=== PATIENT | male | born 1935 | race Caucasian/White ===

== ENCOUNTER 2017-03-04 11:46 | Inpatient (IN) | payer MEDICARE, OTHER ==
[~2017-03-04] VITALS: Ht 172.7 cm; Wt 119.9 kg
[2017-03-04] MEDS ORDERED: ALLOPURINOL100 MG PO (12:32)
[2017-03-04] MEDS ORDERED: DOCUSATE SODIU100 MG PO (12:32)
[2017-03-04] MEDS ORDERED: ASPIRIN 81MG TA81 MG PO (12:32)
[2017-03-04] MEDS ORDERED: CLOPIDOGREL75 MG PO (12:33)
[2017-03-04] MEDS ORDERED: LASIX 40MG. TAB40 MG PO (12:33)
[2017-03-04] MEDS ORDERED: PANTOPRAZOLE SO40 MG PO (12:34)
[2017-03-04] MEDS ORDERED: GABAPENTIN300 MG PO (12:34)
[2017-03-04] MEDS ORDERED: GLIPIZIDE10 MG PO (12:35)
[2017-03-04] MEDS ORDERED: METOPROLOL TAR100 MG PO (12:36)
[2017-03-04] MEDS ORDERED: SIMVASTATIN40 MG PO (12:36)
[2017-03-04] MEDS ORDERED: TAMSULOSIN HYD0.4 MG PO (12:36)
[2017-03-04] MEDS ORDERED: DELTA D3400 IU PO (12:37)
[2017-03-04 12:40] VITALS: BP 151/68
--- NOTE | 2017-03-04 13:02 | Emergency Room Report ---
History of Present Illness Time Seen by 130Stevie Presenting Problem in Triage Pt arrived:Walked Presenting Problem:PT SENT FROM [facility]- PT REPORTS DIFFICULTY BREATHING X3 DAYS. REPORTS INTERMITTENT PRODUCTIVE COUGH. Onset of symptoms date/time:03/01/17/ or onset unknown for:MEDICAL HX UNKNOWN Treatment Prior to Arrival: [employer] Provided by: Sepsis Risk Assessment: Temp: 98.8 B/P: 151/68 MAP: 95 Pulse: 82 Resp: 22 Recent fever? N Clinical Suspician of Infection? N Mental Status: 1 - Regular (Normal Baseline) Sepsis Risk:Low Sepsis Risk Have you (or family members/close friends) recently traveled outside the [place]? N If Yes, where/when: Have you had exposure to infectious disease within the past month? N TB? Other? Specify: Comment Patient complains of shortness of breath for 2 days. He does not walk, he uses an electric wheelchair, but he says even with minimal exertion going to the bathroom he became very short of breath. He has a cough with white sputum. Rhinorrhea. No fever. No chest pain. He has chronic swelling of his legs, unchanged. He goes to the [facility]. He says that he just moved back up here from [place] 2 weeks ago. He states he has a history of congestive heart failure. He was a smoker, quit 17 years ago. He denies history of chronic obstructive pulmonary disease. ALLERGIES Coded Allergies: No Known Allergies (03/04/17) Home Medications Reported Medications Allopurinol 200 MG PO ONCE ASPIRIN (Aspirin) 81 MG PO DAILY Docusate Sodium 100 MG PO DAILY Furosemide (Lasix 40MG) 40 MG PO DAILY CLOPIDOGREL BISULFATE (Clopidogrel 75MG) 75 MG PO DAILY Gabapentin (Gabapentin 300MG) 300 MG PO BID Pantoprazole Sodium (Pantoprazole 40MG) 40 MG PO ONCE Glipizide 10 MG PO BID Metoprolol Tartrate (Metoprolol 100MG) 100 MG PO BID TAMSULOSIN HCL (Tamsulosin 0.4MG) 0.4 MG PO QHS Simvastatin (Simvastatin 40MG Tab) 40 MG PO DAILY CHOLECALCIFEROL (VITAMIN D3) (Delta D3) 400 UNIT PO DAILY History Medical History General CAD? No Angina: No FL: No Hypertension? No Hyperlipidemia? No CHF? Yes DVT? No PE? No COPD? No Asthma? No GERD? Yes Gastric ulcers? No GI Bleed? No Hernia? No Thyroid Problems? No Hypothyroidism? No CVA? No Seizures? No Diabetes? Yes Insulin Dependent: No Insulin Pump: No Home FSBS? No Renal Insuffiency? Yes End Stage Renal Disease? No UTI? Yes Stones? Yes GB Disease: No Hepatitis? No Arthritis? Yes Cataracts? Yes Glaucoma? No TB? No Anxiety? No Depression? No Cancer? No Immunization Hx DT/Tetanus Unknown Surgical Hx Previous Surgery?Y Tonsils Hernia GOITER LT KIDNEY CATARACTS RT KNEE Family History Family Hx Diabetes Yes CAD No Hypertension Yes Hyperlipidemia No Cancer Yes TB No Social History Smoking Hx Smoker: Former Smoker Tobacco: No Packs/day N/A Alcohol Alcohol: No Review of Systems All Other Systems Reviewed and Negative Constitutional denies fever ENT nose discharge. denies: throat pain. Respiratory cough, shortness of breath Cardiovascular denies chest pain, edema (chronic) Physical Exam Vital Signs Vital Signs Date Time Temp Pulse Resp B/P Pulse O2 O2 Flow FiO2 Ox Delivery Rate 03/04 1548 98.2 93 18 119/77 94 3 03/04 1545 98.2 93 18 119/77 94 3 03/04 1437 94 18 124/67 96 3 03/04 1336 80 18 125/71 96 3 03/04 1240 98.8 82 22 151/68 93 03/04 1156 99.6 68 20 93/40 92 General Appearance normal appearance, WD/WN Eye Exam - bilateral eye normal exam, bilateral eye PERRL, bilateral eye EOMI Ear, Nose, Throat hearing grossly normal, normal ENT inspection Neck normal inspection, non-tender, supple, full range of motion Respiratory Status Yes: trachea midline, chest symmetrical, non tender chest. No: respiratory distress. Lung Sounds bilateral: normal breath sounds, lungs clear. Cardiovascular no peripheral edema, no gallop, no JVD, no murmur, no rub, normal peripheral pulses, irregularly irregular Peripheral Pulses Pulses normal Yes Gastrointestinal normal bowel sounds, normal exam, non tender, soft, no organomegaly Extremities 1+ edema of lower legs and ankles Neurologic alert, normal exam Mental status normal mood/affect Skin intact, normal color, warm/dry Medical Decision Making LABS/Meds/Orders Pt receiving controlled substance in ED? No Results/Orders Laboratory Tests 03/04/17 1533: Antibody Screen NEGATIVE, Miscellaneous Test NEGATIVE 03/04/17 1400: Stool Occult Blood NEGATIVE 03/04/17 1300: TSH 6.24 H, Thyroxine (T4) 7.0 03/04/17 1300: Lactic Acid 1.5 03/04/17 1300: B-Natriuretic Peptide 133 H 03/04/17 1300: Sodium 142, Potassium 4.6, Chloride 107, Carbon Dioxide 33 H, BUN 23 H, Creatinine 1.8 H, Estimated Creat Clear 50, Estimated GFR (MDRD) 36, Glucose 175 H, Calcium 8.5, Total Bilirubin 0.3, AST 10 L, ALT 16, Alkaline Phosphatase 72, Creatine Kinase 42, CK-MB (CK-2) Rel Index 1.2, CK and CKMB Interp 0.5, Troponin I < 0.02, Total Protein 6.7, Albumin 3.1 L, Globulin 3.6 H, Albumin/Globulin Ratio 0.9 L, D-Dimer 1190 *H, WBC 7.8, RBC 3.47 L, Hgb 8.2 L, Hct 28.0 L, MCV 80.7 L, RDW 21.9 H, Plt Count 191, Gran % 83.3 H, Gran # 6.5, Lymphocytes % 12.1, Monocytes % 4.6, Lymphocytes # 0.9, Monocytes # 0.4, PUBS MCHC 29.3 L, MCH 23.6 L Current Medication Orders Sig/Ollie Start time Last Medication Dose Route Stop Time Status Admin Aspirin 81 MG DAILY 03/05 900 AC PO Clopidogrel Bisulfate 75 MG DAILY 03/05 900 AC PO Furosemide 40 MG DAILY 03/05 900 AC PO Enoxaparin Sodium 115 MG Q12 03/04 2100 AC SC Gabapentin 300 MG BID 03/04 2100 AC PO Metoprolol Tartrate 100 MG BID 03/04 2100 AC PO Pravastatin Sodium 40 MG QHS 03/04 2100 AC PO Tamsulosin HCl 0.4 MG QHS 03/04 2100 AC PO Diagnostic Test (Pha) 1 EACH W/MEALS&HS 03/04 1700 AC FS 05/03 1659 Insulin Human [rDNA See Dose W/MEALS&HS 03/04 1700 AC origin] Insts (1) SC Acetaminophen 650 MG Q4HP PRN 03/04 1515 AC PO Allopurinol 200 MG ONCE ONE 03/04 1515 DC PO 03/04 1516 Ceftriaxone Sodium 1 GM DAILY 03/04 1515 AC Sodium Chloride 50 ML IV Influenza Virus 0.5 ML PRN PRN 03/04 1515 AC Vaccine Quadrival IM Nicotine 21 MG DAILYP PRN 03/04 1515 AC TD Pantoprazole Sodium 40 MG ONCE ONE 03/04 1515 DC PO 03/04 1516 Sodium Chloride 10 ML PRN PRN 03/04 1515 AC IV Enoxaparin Sodium 0 .STK-MED ONE 03/04 1449 DC SC Enoxaparin Sodium 115 MG ONCE ONE 03/04 1445 DC 03/04 SC 03/04 1446 1453 Levofloxacin/Dextrose 150 ML ONCE ONE 03/04 1415 DCr 03/04 IV 03/04 1544 1411 Levofloxacin/Dextrose 150 ML .STK-MED ONE 03/04 1408 DC IV Sodium Chloride 10 ML PRN PRN 03/04 1300 AC IV 03/05 1250 Dose Instructions: (1)Insulin Human [rDNA origin]: SEE ADMIN CRITERIA FOR LOW INTENSITY SS Orders Procedure Date/time Status NUC LUNG VENT & PERFUSION 03/05 UNK Active DIET-2000 CALORIE ADA 03/04 D Active D-DIMER 03/04 1439 Complete Decision to admit 03/04 1433 Active THYROID STIMULATING HORMONE 03/04 1406 Complete THYROXINE (T4) 03/04 1406 Complete STOOL OCCULT BLOOD 03/04 1406 Complete BRAIN NATRIURETIC PEPTIDE 03/04 1312 Complete ELECTROCARDIOGRAM REQUEST 03/04 1251 Active IV SALINE LOCK 03/04 1251 Active TECHNICAL SUPPORT ASSOCIATE 03/04 1251 Active CULTURE, BLOOD 03/04 1251 Active LACTIC ACID 03/04 1251 Complete CBC WITH AUTO DIFF 03/04 1251 Complete CARDIAC ENZYMES 03/04 1251 Complete CHEM 12 PROFILE 03/04 1251 Complete ADMIT PATIENT 03/04 UNK Active 12 LEAD EKG-BESSON (INITIAL) 03/04 UNK Active PULSE OXIMETRY REQUEST 03/04 UNK Active OXYGEN REQUEST 03/04 UNK Active ECHO ADULT 03/04 UNK Active VITAL SIGNS 03/04 UNK Active JOB FOREMAN 03/04 UNK Active IV SALINE LOCK 03/04 UNK Active CODE STATUS 03/04 UNK Active PATIENT ACTIVITY ORDER 03/04 UNK Active TYPE AND SCREEN 03/04 UNK Complete PHYSICIANS CONSULT 03/04 UNK Active CM/EKG CM/EKG Comments EKG interpreted by Augustin Goode MD: Rhythm: Atrial fibrillation, controlled response Rate: 84 [place]: normal Ectopy: none Conduction: normal ST Segment Changes: none T Wave Changes: none Q Waves: none No evidence of acute ischemia or injury Low voltage QRS No prior EKGs available for comparison XRAY/CT/US XRAY/CT/US XRAY chest Comment X-ray interpreted by radiologist: RIGHT basilar atelectasis or infiltrate, small RIGHT pleural effusion. Progress - 2:00 PM: Discussed results with patient. He states he has no history of atrial fibrillation to his knowledge. He says that he was given a transfusion 6 months ago because of blood in his stool. He says he currently does not have blood in his stool. 2:30 PM: The [facility] does not have any beds. The patient will be admitted here. I have discussed the case with Dr. Ron who agrees to admit the patient to the hospital. We discussed the patient's clinical information, including history, exam, laboratory and radiology results and ED course. Per hospital procedure, I will write temporary bridge inpatient orders on the patient. Specific orders requested by the admitting physician: D dimer, started on Lovenox. Type and hold for 2 units of blood. Change from Lovenox to Rocephin. Cardiology consult. 4:20 PM: Seen by Abner for Dr. Vivas in ED. Departure Departure Disposition Still a Patient Clinical Impression Primary Impression: Community acquired pneumonia Qualifiers: Laterality: right Lung location: lower lobe of lung Qualified Code: J18.1 - Lobar pneumonia, unspecified organism Secondary Impressions: Anemia Qualifiers: Anemia type: unspecified type Qualified Code: D64.9 - Anemia, unspecified Atrial fibrillation, new onset Condition STABLE ED Critical Care Critical Care No at [id number]
[2017-03-04 13:22] LABS: HEMOGLOBIN 8.2 g/dL (14.1-18.0)
[2017-03-04 13:23] LABS: LYMPH % 12.1 % (10-50)
[2017-03-04 13:24] LABS: LYMPH # 0.9 K/mm3 (0.7-4.5)
[2017-03-04 13:44] LABS: BUN 23 mg/dL (7-18)
[2017-03-04 13:45] LABS: GFR (ESTIMATED) 36 ML/MIN (>60)
--- NOTE | 2017-03-04 13:50 | RADIOLOGY REPORT PS360 ---
CHEST-PORTABLE HISTORY: SOA, COUGH ORDERING PHYSICIAN: Augustin Goode MD PATIENT AGE: 82 years COMPARISON: None available FINDINGS: There is cardiomegaly without failure. Patchy density is present in the right lung base consistent with atelectasis or infiltrate. There is a small right pleural effusion. Patient's chin obscures the lung apices. Left heart obscures the left lung base. Upper lungs are clear. There is mild prominence of the hilum on the left. This may be vascular. There are no previous available for comparison. IMPRESSION: 1. Cardiomegaly. 2. Right basilar atelectasis or infiltrate with small right effusion
[2017-03-04 14:35] LABS: STOOL OCCULT BLOOD NEGATIVE (NEG)
--- NOTE | 2017-03-04 16:33 | CONSULT NOTE ---
Standard Demographics Patient Demo Date of Consultation: 03/04/17 Referring Provider: Gavin Ron MD Reason for Consultation: A.fib with CVR, CAD PRIMARY DIAGNOSIS: CAP,ANEMIA,NEW ONSET A FIB Problem list Problem list: 1. Coronary artery disease A. History of coronary artery stenting approximately 2014 or 2015, in [place]. Patient unsure of the hospital. 2. History of Coumadin therapy for possible atrial fibrillation A. Discontinued early 2016 at which time he was hospitalized for anemia with subsequent blood transfusion 3. 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 Diabetes mellitus, treated for a couple of years 5. Gout 6. History of congestive heart failure 7. History of tobacco use discontinued 1998. Previously smoked one pack per day for 52 years History of present illness: History of present illness: 82-year-old white male with history as noted above presented to the emergency department for increasing shortness of breath and dyspnea over the last several days. Patient denies chest pain, palpitations, chest tightness or pressure. Workup in the emergency room revealed atrial fibrillation with controlled ventricular response. Initial d-dimer is elevated but due to creatinine patient cannot undergo CT scan of the lungs for PE protocol. A VQ scan has been ordered. In the meantime patient has been started on Lovenox therapy. He is noted to be anemic with a recent history of blood transfusion. Etiology apparently unknown per patient and granddaughter. Cardiology consulted for evaluation. Electrocardiogram shows atrial fibrillation with controlled ventricular response with poor R wave progression anteriorly. Past Medical History: General: Hypertension No CVA No Seizures No TB No COPD No Asthma No Diabetes Yes Insulin Dependent No Insulin Pump No Angina No VT No Hyperlipidemia No Cancer No Ulcers No GB Disease No Past Surgical HX: Previous Surgery?Y Tonsils Hernia GOITER LT KIDNEY CATARACTS RT KNEE Allergies Coded Allergies: No Known Allergies (03/04/17) Home medications: Reported Medications Allopurinol 200 MG PO ONCE ASPIRIN (Aspirin) 81 MG PO DAILY Docusate Sodium 100 MG PO DAILY Furosemide (Lasix 40MG) 40 MG PO DAILY CLOPIDOGREL BISULFATE (Clopidogrel 75MG) 75 MG PO DAILY Gabapentin (Gabapentin 300MG) 300 MG PO BID Pantoprazole Sodium (Pantoprazole 40MG) 40 MG PO ONCE Glipizide 10 MG PO BID Metoprolol Tartrate (Metoprolol 100MG) 100 MG PO BID TAMSULOSIN HCL (Tamsulosin 0.4MG) 0.4 MG PO QHS Simvastatin (Simvastatin 40MG Tab) 40 MG PO DAILY CHOLECALCIFEROL (VITAMIN D3) (Delta D3) 400 UNIT PO DAILY Current Medications: Current Medications Aspirin 81 MG DAILY PO Clopidogrel Bisulfate 75 MG DAILY PO Furosemide 40 MG DAILY PO Enoxaparin Sodium 115 MG Q12 SC Gabapentin 300 MG BID PO Metoprolol Tartrate 100 MG BID PO Pravastatin Sodium 40 MG QHS PO Tamsulosin HCl 0.4 MG QHS PO Diagnostic Test (Pha) 1 EACH W/MEALS&HS FS Insulin Human [rDNA origin] SEE ADMIN CRITERIA FOR LOW INTENSITY SS W/MEALS&HS SC Acetaminophen 650 MG Q4HP PRN PO Allopurinol 200 MG ONCE ONE PO (DC) Ceftriaxone Sodium 1 GM DAILY IV Sodium Chloride 50 ML Influenza Virus Vaccine Quadrival 0.5 ML PRN PRN IM Nicotine 21 MG DAILYP PRN TD Pantoprazole Sodium 40 MG ONCE ONE PO (DC) Sodium Chloride 10 ML PRN PRN IV Enoxaparin Sodium 0 .STK-MED ONE SC (DC) Enoxaparin Sodium 115 MG ONCE ONE SC (DC) Levofloxacin/Dextrose 150 ML ONCE ONE IV (DCr) Levofloxacin/Dextrose 150 ML .STK-MED ONE IV (DC) Sodium Chloride 10 ML PRN PRN IV Immunization HX DT/Tetanus Unknown Family history Family HX Family Hx Insignificant No Diabetes Yes CAD No Hypertension Yes Hyperlipidemia No Cancer Yes TB No Social Hx: Smoking HX Tobacco No Packs/day N/A Alcohol Alcohol: No Hx of Drug Use Drug Use? No Patien't marital status is Patient's support system is fair Review of systems: Constitutional weakness. Respiratory SOB with excertion. Cardiovascular palpitations Gastrointestinal/Abdominal No no symptoms reported Genitourinary No: no symptoms reported. Musculoskeletal joint pain. Neurological No: no symptoms reported. Exam: Admission Vital Signs: 1ST Vital Signs Result Date Time Pulse Ox 92 03/04 1156 B/P 93/40 03/04 1156 Temp 99.6 03/04 1156 Pulse 68 03/04 1156 Resp 20 03/04 1156 O2 Flow Rate 3 03/04 1336 Last Vital Signs: Vital Signs Result Date Time Pulse Ox 94 03/04 1548 B/P 119/77 03/04 1548 O2 Flow Rate 3 03/04 1548 Temp 98.2 03/04 1548 Pulse 93 03/04 1548 Resp 18 03/04 1548 Exam General appearance: alert, awake, no acute distress Neck: no carotid bruit, no JVD Cardiovascular: irregularly irregular with controlled ventricular response. Unable to appreciate any murmur gallop or rub at this time. Respiratory: poor effort but decreased breath sounds noted generally. ABD: soft, no tenderness, obese Extremities: moves all, arthritic changes noted of the hands. Decreased dorsalis pedis and posterior tibial pulses with 1+ edema noted bilaterally. Neuro: alert, intact, oriented Laboratory data: Laboratory Tests 03/04/17 1400: Stool Occult Blood NEGATIVE 03/04/17 1300: TSH 6.24 H, Thyroxine (T4) 7.0 03/04/17 1300: Lactic Acid 1.5 03/04/17 1300: B-Natriuretic Peptide 133 H 03/04/17 1300: Sodium 142, Potassium 4.6, Chloride 107, Carbon Dioxide 33 H, BUN 23 H, Creatinine 1.8 H, Estimated Creat Clear 50, Estimated GFR (MDRD) 36, Glucose 175 H, Calcium 8.5, Total Bilirubin 0.3, AST 10 L, ALT 16, Alkaline Phosphatase 72, Creatine Kinase 42, CK-MB (CK-2) Rel Index 1.2, CK and CKMB Interp 0.5, Troponin I < 0.02, Total Protein 6.7, Albumin 3.1 L, Globulin 3.6 H, Albumin/Globulin Ratio 0.9 L, D-Dimer 1190 *H, WBC 7.8, RBC 3.47 L, Hgb 8.2 L, Hct 28.0 L, MCV 80.7 L, RDW 21.9 H, Plt Count 191, Gran % 83.3 H, Gran # 6.5, Lymphocytes % 12.1, Monocytes % 4.6, Lymphocytes # 0.9, Monocytes # 0.4, PUBS MCHC 29.3 L, MCH 23.6 L Microbiology Date/Time Procedure - Status Source Growth 03/04 1300 Anaerobic Blood Culture - RECD BLOOD 03/04 1300 Aerobic Blood Culture - RECD BLOOD 03/04 1300 Anaerobic Blood Culture - RECD BLOOD 03/04 1300 Aerobic Blood Culture - RECD BLOOD Plan: Assessment: 1. Atrial fibrillation with controlled ventricular response. Onset unknown. Lovenox has been started. Continue metoprolol for rate control. We'll obtain an echocardiogram to evaluate LEFT ventricular size, LEFT atrial size and LEFT ventricular ejection fraction. Elevated d-dimer noted with plans for VQ scan. Patient has an elevated CHADS-VASc score and the issue of long-term anticoagulation versus referral for LEFT atrial appendage ligation will need to be addressed prior to discharge. 2. Coronary artery disease with history of coronary artery stenting in the past. Initial troponin normal. Continue aspirin and Plavix. 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 Chronic kidney disease stage III 5. Diabetes mellitus 6. Hypertension 7. Anemia with history of recent blood transfusion 8. Mildly elevated BNP Recommendations: See above. at 1633
[2017-03-04 16:57] LABS: ABO BLOOD TYPE B; RH BLOOD TYPE NEGATIVE
[2017-03-04 17:01] VITALS: BP 151/69
[2017-03-04 17:27] VITALS: BP 151/69
--- NOTE | 2017-03-04 18:19 | ACUTE CARE PROGRESS NOTE (QUA) ---
Progress Notes Subjective Date 03/04/17 Time 1800 Note 82 y.o WM has moved back here from [place], Presented in ER with SOA. He is a [facility] patient. CXR suggests atelectasis and pleural effusion on the left. He is in A-fib, onset unknown, but he has not been aware that he has heart irregularity. He is aferile and WBC is WNL. D-dimer is elevated and VQ scan is ordered. He takes Plavix and aspirin. Plavix will be D/C'd and Rx Lovenox. Received Levaquin in ER but will be continued on Ceftriaxone. See H&P and Cardiology consult. Objective Findings Laboratory Tests 03/04/17 1739: POC Glucose 118 H 03/04/17 1533: Antibody Screen NEGATIVE, Miscellaneous Test NEGATIVE 03/04/17 1400: Stool Occult Blood NEGATIVE 03/04/17 1300: TSH 6.24 H, Thyroxine (T4) 7.0 03/04/17 1300: Lactic Acid 1.5 03/04/17 1300: B-Natriuretic Peptide 133 H 03/04/17 1300: Sodium 142, Potassium 4.6, Chloride 107, Carbon Dioxide 33 H, BUN 23 H, Creatinine 1.8 H, Estimated Creat Clear 50, Estimated GFR (MDRD) 36, Glucose 175 H, Calcium 8.5, Total Bilirubin 0.3, AST 10 L, ALT 16, Alkaline Phosphatase 72, Creatine Kinase 42, CK-MB (CK-2) Rel Index 1.2, CK and CKMB Interp 0.5, Troponin I < 0.02, Total Protein 6.7, Albumin 3.1 L, Globulin 3.6 H, Albumin/Globulin Ratio 0.9 L, D-Dimer 1190 *H, WBC 7.8, RBC 3.47 L, Hgb 8.2 L, Hct 28.0 L, MCV 80.7 L, RDW 21.9 H, Plt Count 191, Gran % 83.3 H, Gran # 6.5, Lymphocytes % 12.1, Monocytes % 4.6, Lymphocytes # 0.9, Monocytes # 0.4, PUBS MCHC 29.3 L, MCH 23.6 L Microbiology 03/04 1300 BLOOD: Anaerobic Blood Culture - RECD 03/04 1300 BLOOD: Aerobic Blood Culture - RECD 03/04 1300 BLOOD: Anaerobic Blood Culture - RECD 03/04 1300 BLOOD: Aerobic Blood Culture - RECD Last VS-Temp:98.1 B/P:151/69 Pulse:87 Resp:22 SaO2:98 OXYGEN Last weight lbs:258 oz:7 K.227 Method:Bed Scales Exam General appearance: alert (talkative), no acute distress Eyes: anicteric, conjunctiva clear, PERRLA ENT: mucous membranes moist Cardiovascular: irregularly irregular Respiratory: basilar rales (faint), diminished breath sounds ABD: soft, obese Extremities: edema (trace) Skin: dry, pale Neuro: no deficit, oriented, speech clear Reviewed: medications, vital signs, lab results, radiology report, consult note Assessment/Plan Problem List 1. Anemia 2. Atrial fibrillation 3. Hypothyroidism 4. Pleural effusion 5. Type 2 diabetes mellitus 6. Debilitated 7. COPD (chronic obstructive pulmonary disease) 8. Elevated d-dimer 9. Hypotension Patient condition Stable Plan: see orders. This inpt stay is expected to cross 2 MNs from start of care Yes at 1812
--- NOTE | 2017-03-04 18:26 | HISTORY AND PHYSICAL REPORT ---
History and Physical ([facility]) Date of admission: 03/04/17 Chief complaint: SOB History: History of Present Illness: Mr. 82-year-old white male with history as noted above presented to the emergency department for increasing shortness of breath and dyspnea over the last several days. Patient denies chest pain, palpitations, chest tightness or pressure. BP at home at this time was 90/30"s. He has a periodic cough and denies fever. Workup in the emergency room revealed atrial fibrillation with controlled ventricular response. Initial d-dimer is elevated but due to creatinine patient cannot undergo CT scan of the lungs for PE protocol. A VQ scan has been ordered. In the meantime patient has been started on Lovenox therapy. He is noted to be anemic with a recent history of blood transfusion. Etiology apparently unknown per patient and granddaughter. Cardiology consulted for evaluation. Electrocardiogram shows atrial fibrillation with controlled ventricular response with poor R wave progression anteriorly. Past Medical History: Medical History: CAD? Yes Angina: No DE: No Hypertension? No Hyperlipidemia? No CHF? Yes DVT? No PE? No COPD? Yes Asthma? No Anemia? Yes GERD? Yes Gastric ulcers? No GI Bleed? Yes Hernia? No Thyroid Problems? Yes Hypothyroidism? Yes CVA? No Seizures? No Diabetes? Yes Insulin Dependent: No Insulin Pump: No Home FSBS? No Renal Insuffiency? Yes UTI? Yes Stones? Yes BPH? Yes GB Disease: No Hepatitis? No Arthritis? Yes Cataracts? Yes Glaucoma? No TB? No Anxiety? No Depression? No Cancer? No Additional hx: Gout 05/1984 Acute diverticulitis -colonoscopy 1986 SVT Renal stones Ankle Fracture Atrophy of Left kidney Ct 1998 Surgical history: Previous Surgery?Y Tonsils Hernia GOITER LT KIDNEY nephrectomy CATARACTS RT KNEE Medications: Reported Medications Allopurinol 200 MG PO ONCE ASPIRIN (Aspirin) 81 MG PO DAILY Docusate Sodium 100 MG PO DAILY Furosemide (Lasix 40MG) 40 MG PO DAILY CLOPIDOGREL BISULFATE (Clopidogrel 75MG) 75 MG PO DAILY Gabapentin (Gabapentin 300MG) 300 MG PO BID Pantoprazole Sodium (Pantoprazole 40MG) 40 MG PO ONCE Glipizide 10 MG PO BID Metoprolol Tartrate (Metoprolol 100MG) 100 MG PO BID TAMSULOSIN HCL (Tamsulosin 0.4MG) 0.4 MG PO QHS Simvastatin (Simvastatin 40MG Tab) 40 MG PO DAILY CHOLECALCIFEROL (VITAMIN D3) (Delta D3) 400 UNIT PO DAILY Allergies: Coded Allergies: No Known Allergies (03/04/17) Family History: Family history: Postive for: CAD, DM, cancer. Social History: Smoking Hx Tobacco: No Smoker: Former Smoker Type: N/A Packs/day: N/A Are you exposed to second hand No Alcohol: Alcohol: No Hx of Drug Use: Drug Use? No Review of Systems: ENT No: ear ache, sore throat. Cardiovascular Positive for: edema, palpitations. No: chest pain. Respiratory Positive for: shortness of air, non-productive. No: pneumonia. GI Positive for: GERD. No: abdominal pain, constipation, hematemeis, hematochezia, melena, nausea, vomitting. (male) No: hematuria. Neurological Positive for: headache. No: confusion, dizziness, seizure, syncope. Musculoskeletal Positive for: extremity pain (legs). Physical Exam: Vital signs: 1ST Vital Signs Result Date Time Pulse Ox 92 03/04 1156 B/P 93/40 03/04 1156 Temp 99.6 03/04 1156 Pulse 68 03/04 1156 Resp 20 03/04 1156 O2 Flow Rate 3 03/04 1336 O2 Delivery OXYGEN 03/04 1701 Exam: General appearance: alert, no acute distress, conversant Eyes: anicteric ENT: mucous membranes moist Neck: no carotid bruit, full range of motion, lymphadenopathy (absent), thyroid (normal) Cardiovascular: irregularly irregular Respiratory: diminished breath sounds (posterior) ABD: soft, no tenderness, bowel sounds present, obese Extremities: edema (bilateral lower) Neuro: alert, oriented, speech clear Lab data: Labs: Laboratory Tests 03/04/17 1739: POC Glucose 118 H 03/04/17 1533: Antibody Screen NEGATIVE, Miscellaneous Test NEGATIVE 03/04/17 1400: Stool Occult Blood NEGATIVE 03/04/17 1300: TSH 6.24 H, Thyroxine (T4) 7.0 03/04/17 1300: Lactic Acid 1.5 03/04/17 1300: B-Natriuretic Peptide 133 H 03/04/17 1300: Sodium 142, Potassium 4.6, Chloride 107, Carbon Dioxide 33 H, BUN 23 H, Creatinine 1.8 H, Estimated Creat Clear 50, Estimated GFR (MDRD) 36, Glucose 175 H, Calcium 8.5, Total Bilirubin 0.3, AST 10 L, ALT 16, Alkaline Phosphatase 72, Creatine Kinase 42, CK-MB (CK-2) Rel Index 1.2, CK and CKMB Interp 0.5, Troponin I < 0.02, Total Protein 6.7, Albumin 3.1 L, Globulin 3.6 H, Albumin/Globulin Ratio 0.9 L, D-Dimer 1190 *H, WBC 7.8, RBC 3.47 L, Hgb 8.2 L, Hct 28.0 L, MCV 80.7 L, RDW 21.9 H, Plt Count 191, Gran % 83.3 H, Gran # 6.5, Lymphocytes % 12.1, Monocytes % 4.6, Lymphocytes # 0.9, Monocytes # 0.4, PUBS MCHC 29.3 L, MCH 23.6 L Microbiology 03/04 1300 BLOOD: Anaerobic Blood Culture - RECD 03/04 1300 BLOOD: Aerobic Blood Culture - RECD 03/04 1300 BLOOD: Anaerobic Blood Culture - RECD 03/04 1300 BLOOD: Aerobic Blood Culture - RECD Radiology results: Results: 03/03/17 CXR IMPRESSION: 1. Cardiomegaly. 2. Right basilar atelectasis or infiltrate with small right effusion Diagnosis(es): 1. Community acquired pneumonia 2. Atrial fibrillation, new onset 3. Anemia 4. Atrial fibrillation 5. Hypothyroidism 6. Pleural effusion 7. Type 2 diabetes mellitus 8. Debilitated 9. COPD (chronic obstructive pulmonary disease) 10. Elevated d-dimer 11. Hypotension 12. CAD (coronary artery disease) 13. Gout Plan: Cardiology has seen patient and will follow; ECHO is pending; Will have V-Q scan in AM; Telementry;monitor H&H; PRBC have been set up; will add xopenex and is on Rocephin; will add low dose of synthroid at 2947
[2017-03-04 19:31] VITALS: BP 105/60
[2017-03-04 19:55] VITALS: BP 105/60
[2017-03-05] VITALS (9 sets, daily range): BP systolic 96–137; BP diastolic 55–74
--- NOTE | 2017-03-05 07:29 | PHARMACY CLINIC NOTE ---
Patient Demographics Patient Demographics Admission date: 03/04/17 Date: 03/05/17 Time: 727 Allergies Coded Allergies: No Known Allergies (03/04/17) HEIGHT- FT: 5 IN: 8.00 K.227 VTE General Information Labs: Laboratory Tests 03/04 1300 Hematology Hgb (14.1 - 18.0 g/dL) 8.2 L Hct (42.0 - 52.0 %) 28.0 L Plt Count (142 - 424 K/mm3) 191 Disclaimer The following section includes nursing documentation that has been pulled in for pharmacy review. Patient's VTE score: 4 Patient's VTE Risk: LOW RISK Clinical trial participant? No VTE prophylaxis F [id number] VTE prophylaxis ordered? Yes Type of prophylaxis/treatment: Lovenox at 0729
--- NOTE | 2017-03-05 08:28 | ACUTE CARE PROGRESS NOTE (QUA) ---
Progress Notes Subjective Date 03/05/17 Time 08 Note 82 yo WM in bed in NAD. No chest pains or palpitations overnight. Telemetry shows A.fib with CVR Objective Findings Last VS-Temp:97.8 B/P:104/61 Pulse:84 Resp:20 SaO2:98 OXYGEN Last weight lbs:258 oz:7 K.227 Method:Bed Scales Exam General appearance: alert, awake, no acute distress Cardiovascular: irregularly irregular Respiratory: clear to auscultation Extremities: mild edema of LE's Neuro: alert, intact, oriented Reviewed: medications, vital signs, lab results Assessment/Plan Problem List 1. Community acquired pneumonia Qualifiers: Laterality: right Lung location: lower lobe of lung Qualified Code: J18.1 - Lobar pneumonia, unspecified organism 2. Atrial fibrillation, new onset 3. Anemia Qualifiers: Anemia type: unspecified type Qualified Code: D64.9 - Anemia, unspecified 4. Hypothyroidism 5. Pleural effusion 6. Type 2 diabetes mellitus 7. Debilitated 8. COPD (chronic obstructive pulmonary disease) 9. Elevated d-dimer 10. Hypotension 11. CAD (coronary artery disease) 12. Gout Patient condition Stable Plan: With history of CAD and coronary stenting, he should have lexiscan myoview. Currently asymptomatic with normal troponin but with MCBRIDE and new onset a. fib, would recommend evaluation here in hospital. However, V/Q scan has been ordered and needs to be done first. Will postpone CAD workup for now unless clinical status changes. Continue lovenox for A.fib. check stool for occult blood. Consider transfusion to get Hgb>10 due to CAD. Echo pending. This inpt stay is expected to cross 2 MNs from start of care Yes at 0902
--- NOTE | 2017-03-05 08:46 | ACUTE CARE PROGRESS NOTE (QUA) ---
Progress Notes Subjective Date 03/05/17 Time 0725 Note Pt arouses to voice, converses easily, states he rested well overnight other than a dream in which he removed his tele leads and O2 tubing which it turned out he actually did. He denies any SOB or CP, notes occasional prod cough. He has not yet had breakfast, denies any nausea, is voiding normally. Objective Findings Laboratory Tests 03/05/17 0603: POC Glucose 142 H 03/04/17 1957: POC Glucose 141 H 03/04/17 1739: POC Glucose 118 H 03/04/17 1533: Antibody Screen NEGATIVE, Miscellaneous Test NEGATIVE 03/04/17 1400: Stool Occult Blood NEGATIVE 03/04/17 1300: TSH 6.24 H, Thyroxine (T4) 7.0 03/04/17 1300: Lactic Acid 1.5 03/04/17 1300: B-Natriuretic Peptide 133 H 03/04/17 1300: Sodium 142, Potassium 4.6, Chloride 107, Carbon Dioxide 33 H, BUN 23 H, Creatinine 1.8 H, Estimated Creat Clear 50, Estimated GFR (MDRD) 36, Glucose 175 H, Calcium 8.5, Total Bilirubin 0.3, AST 10 L, ALT 16, Alkaline Phosphatase 72, Creatine Kinase 42, CK-MB (CK-2) Rel Index 1.2, CK and CKMB Interp 0.5, Troponin I < 0.02, Total Protein 6.7, Albumin 3.1 L, Globulin 3.6 H, Albumin/Globulin Ratio 0.9 L, D-Dimer 1190 *H, WBC 7.8, RBC 3.47 L, Hgb 8.2 L, Hct 28.0 L, MCV 80.7 L, RDW 21.9 H, Plt Count 191, Gran % 83.3 H, Gran # 6.5, Lymphocytes % 12.1, Monocytes % 4.6, Lymphocytes # 0.9, Monocytes # 0.4, PUBS MCHC 29.3 L, MCH 23.6 L Microbiology 03/04 1300 BLOOD: Anaerobic Blood Culture - RECD 03/04 1300 BLOOD: Aerobic Blood Culture - RECD 03/04 1300 BLOOD: Anaerobic Blood Culture - RECD 03/04 1300 BLOOD: Aerobic Blood Culture - RECD Vital Signs Date Time Temp Pulse Resp B/P Pulse O2 O2 Flow FiO2 Ox Delivery Rate 03/05 0837 98.2 99 22 105/68 96 2 03/05 0830 98.2 99 22 105/68 96 OXYGEN 03/05 0637 2 03/05 0607 2 03/05 0538 2 03/05 0538 98 OXYGEN 2 03/05 0457 3 03/05 0344 3 03/05 0344 97.8 84 20 104/61 98 OXYGEN 3 03/05 0302 3 03/05 0213 3 03/05 0100 3 03/05 0005 87 ROOM AIR 03/05 0003 3 03/05 0003 97.6 77 20 125/59 99 OXYGEN 3 03/04 2300 3 03/04 2203 3 03/04 2100 3 03/04 1955 97.8 101 22 105/60 99 3 03/04 1931 3 03/04 1931 97.8 101 22 105/60 99 OXYGEN 3 03/04 1900 3 03/04 1818 3 03/04 1727 87 03/04 1727 98.1 87 22 151/69 03/04 1727 98 OXYGEN 03/04 1701 98.1 87 22 151/69 98 OXYGEN 03/04 1700 3 03/04 1615 3 03/04 1615 3 03/04 1548 98.2 93 18 119/77 94 3 03/04 1545 98.2 93 18 119/77 94 3 03/04 1437 94 18 124/67 96 3 03/04 1336 80 18 125/71 96 3 03/04 1240 98.8 82 22 151/68 93 03/04 1156 99.6 68 20 93/40 92 Last VS-Temp:98.2 B/P: 105/68 Pulse:99 Resp:22 SaO2:96 OXYGEN Last weight lbs: 258 oz: 7 K.227 Method: Bed Scales Exam General appearance: alert, awake, no acute distress Cardiovascular: irregular Respiratory: diminished throughout ABD: no rebound, soft, no tenderness, no guarding, no organomegaly, no palpable mass, bowel sounds present, obese Reviewed: medications, vital signs, lab results, radiology report, consult note, nursing notes Assessment/Plan Problem List 1. Community acquired pneumonia 2. Atrial fibrillation, new onset 3. Anemia 4. Hypothyroidism 5. Pleural effusion 6. Type 2 diabetes mellitus 7. Debilitated 8. COPD (chronic obstructive pulmonary disease) 9. Elevated d-dimer 10. Hypotension 11. CAD (coronary artery disease) 12. Gout Patient condition Guarded Plan: Cardiology note seen and appreciated. Further per Dr. Ron. This inpt stay is expected to cross 2 MNs from start of care Yes at 0845
--- NOTE | 2017-03-05 15:10 | RADIOLOGY REPORT PS360 ---
CHEST(2 VIEWS-NOT PORTABLE) HISTORY: Shortness of breath SOB ORDERING PHYSICIAN: Reva Ron MD PATIENT AGE: 82 years COMPARISON: 03/04/2017 FINDINGS: There is cardiomegaly with mild pulmonary venous congestion. Small right effusion with right basilar atelectasis noted. No acute bony anomalies. There is mild biapical pleural thickening. IMPRESSION: 1. Cardiomegaly. 2. Small right effusion with right basilar atelectasis not significantly changed
--- NOTE | 2017-03-05 15:10 | RADIOLOGY REPORT PS360 ---
NUC LUNG VENT PERFUSION HISTORY: Shortness of breath, elevated d-dimer sob, elev d-dimer ORDERING PHYSICIAN: Reva Ron MD PATIENT AGE: 82 years DOSE: 35.4 mCi technetium DTPA inhaled 7.94 mCi technetium MAA IV COMPARISON: Chest x-ray of the same day FINDINGS: Study is somewhat limited as patient could not be positioned for all of the images. The lateral perfusion images were not able to be performed. The remaining perfusion images however were unremarkable showing no segmental defects. Ventilation images are somewhat limited.. IMPRESSION: Low probability for pulmonary embolus
[2017-03-05 19:57] LABS: HEMOGLOBIN 7.8 g/dL (14.1-18.0); LYMPH # 1.2 K/mm3 (0.7-4.5); LYMPH % 14.7 % (10-50)
[2017-03-06] VITALS (19 sets, daily range): BP systolic 99–152; BP diastolic 51–81
[2017-03-06 06:27] LABS: LYMPH % 13.8 % (10-50)
[2017-03-06 06:37] LABS: HEMOGLOBIN 7.5 g/dL (14.1-18.0)
--- NOTE | 2017-03-06 08:11 | RADIOLOGY REPORT PS360 ---
PROCEDURE: 2-D M-mode and color Doppler study INDICATIONS FOR THE TEST: Chest pain COPD Heart Murmur Tobacco Smokingex Palpitations+ Fatigue Syncope Edema Hypertension+Diabetes Mellitus+ Rheumatic Fever SOB MCBRIDE+Obesity+Hyperlipidemia+ Family History HD Additional History CAD, 1 stent, HTN, AFIB, Quit smoking 17 years ago PATIENT INFORMATION HEIGHT: 69 WEIGHT: 258 GENDER: Male B/P: 151/69 2-D/M-MODE INTERPRETATION: 2-D MEASUREMENTS OBSERVED VALUES IN CMS Right Ventricular Dimension (RVDd) 2.2 Interventricular Septum (Thickness)(IVsd) 1.0 Left Ventricular Internal Dimensions(LVIDd) 4.7 Left Ventricular Posterior Wall (Thickness)(LVPWd) 1.0 Aortic Root 4.0 Aortic Cusp Separation 2.5 Left Atrial Dimensions (LAD) 2.7 2D 1. Left atrium is qualitatively mildly enlarged, left ventricle is normal size, there is no concentric left ventricular hypertrophy, visually estimated ejection fraction approximately 50% with no obvious regional wall motion abnormality, endocardial surfaces are poorly visualized. 2. The right atrium and right ventricle are moderately enlarged, contractility of the right ventricle is mildly reduced. 3. The aortic valve is minimally thickened and fibrosed. 4. The mitral valve has mild mitral calcification, there is no mitral stenosis. 5. The tricuspid valve leaflets are minimally thickened. 6. The pulmonic valve is poorly visualized. 7. No significant pericardial effusion noted. DOPPLER INTERROGATION: Doppler interrogation of the aortic, mitral and tricuspid valvular presence of mild mitral and tricuspid regurgitation, calculated right ventricular systolic pressure is 42 mmHg consistent with moderate pulmonary hypertension. CONCLUSION: 1. Biatrial enlargement, normal left ventricular size, visually estimated ejection fraction of 50% with no obvious regional wall motion abnormality, endocardial surfaces are somewhat poorly visualized. 2. Moderately enlarged right ventricle with mild reduced contractility. 3. Mild mitral and tricuspid regurgitation, calculated right ventricular systolic pressure is 42 mmHg consistent with moderate pulmonary hypertension. 4. No significant pericardial effusion noted.
--- NOTE | 2017-03-06 08:41 | ACUTE CARE PROGRESS NOTE (QUA) ---
See Addendum Progress Notes Subjective Date 03/06/17 Time 0730 Note Pt sitting up at bedside eating breakfast, very conversant, reports he is feeling better. Pt denies CP or SOB, has no complaints. He has been voiding without difficulty, +BM. Objective Findings Laboratory Tests 03/06/17 0605: POC Glucose 170 H 03/06/17 0600: Sodium 141, Potassium 5.1, Chloride 106, Carbon Dioxide 34 H, BUN 27 H, Creatinine 2.0 H, Estimated Creat Clear 46 L, Estimated GFR (MDRD) 32, Glucose 165 H, Calcium 8.2 L, WBC 7.1, RBC 3.14 L, Hgb 7.5 *L, Hct 25.5 L, MCV 81.1 L, RDW 22.3 H, Plt Count 165, Gran % 80.5 H, Gran # 5.7, Lymphocytes % 13.8, Monocytes % 5.7, Lymphocytes # 1.0, Monocytes # 0.4, PUBS MCHC 29.4 L, MCH 23.9 L 03/05/174: POC Glucose 183 H 03/05/17 1933: WBC 8.5, RBC 3.29 L, Hgb 7.8 *L, Hct 26.9 L, MCV 81.0 L, RDW 21.7 H, Plt Count 175, Gran % 79.1, Gran # 6.7, Lymphocytes % 14.7, Monocytes % 6.2, Lymphocytes # 1.2, Monocytes # 0.5, PUBS MCHC 29.0 L, MCH 23.7 L 03/05/17 1640: POC Glucose 151 H 03/05/17 1148: POC Glucose 204 H Vital Signs Date Time Temp Pulse Resp B/P Pulse O2 O2 Flow FiO2 Ox Delivery Rate 03/06 0656 2 03/06 0603 2 03/06 0551 2 03/06 0551 95 OXYGEN 2 03/06 0507 2 03/06 0402 2 03/06 040 97.6 69 20 119/63 96 OXYGEN 2 03/06 0248 2 03/06 0210 2 03/06 0056 2 03/05 2349 2 03/05 2349 98.6 73 20 110/55 98 OXYGEN 2 03/05 2311 2 03/05 2213 2 03/05 2100 2 03/05 2010 97.7 66 20 137/74 97 2 03/05 1941 2 03/05 194 97.7 66 20 137/74 97 OXYGEN 2 03/05 1848 2 03/05 1848 88 ROOM AIR 03/05 1846 2 03/05 1646 2 03/05 1630 97.9 72 18 115/67 98 OXYGEN 03/05 1451 2 03/05 1300 2 03/05 1130 98.7 70 18 96/61 98 OXYGEN 03/05 1111 2 03/05 0900 2 03/05 0837 98.2 99 22 105/68 96 2 03/05 0830 98.2 99 22 105/68 96 OXYGEN Last VS-Temp:97.6 B/P: 119/63 Pulse:69 Resp:20 SaO2:95 OXYGEN Last weight lbs: 258 oz: 7 K.227 Method: Bed Scales 03/04/17 ECHO: CONCLUSION: 1. Biatrial enlargement, normal left ventricular size, visually estimated ejection fraction of 50% with no obvious regional wall motion abnormality, endocardial surfaces are somewhat poorly visualized. 2. Moderately enlarged right ventricle with mild reduced contractility. 3. Mild mitral and tricuspid regurgitation, calculated right ventricular systolic pressure is 42 mmHg consistent with moderate pulmonary hypertension. 4. No significant pericardial effusion noted. 03/04/17 Stool Occult Blood: Negative 03/05/17 Nuclear Lung Ventilation Perfusion Scan: IMPRESSION: Low probability for pulmonary embolus 03/05/17 CXR: IMPRESSION: 1. Cardiomegaly. 2. Small right effusion with right basilar atelectasis not significantly changed. Exam General appearance: alert, awake, no acute distress Cardiovascular: irregular Respiratory: diminished throughout ABD: no rebound, soft, no tenderness, no guarding, no organomegaly, no palpable mass, bowel sounds present, obese Extremities: moves all, no calf tenderness, trace BLE edema Reviewed: medications, vital signs, lab results, radiology report, consult note, nursing notes Assessment/Plan Problem List 1. Community acquired pneumonia 2. Atrial fibrillation, new onset 3. Anemia 4. Hypothyroidism 5. Pleural effusion 6. Type 2 diabetes mellitus 7. Debilitated 8. COPD (chronic obstructive pulmonary disease) 9. Elevated d-dimer 10. Hypotension 11. CAD (coronary artery disease) 12. Gout Patient condition Guarded Plan: Will decrease Lovenox dose due to low probability for PE. Transfuse 2 units PRBC. Anemia workup with Surgery consult. Will check labs in am. This inpt stay is expected to cross 2 MNs from start of care Yes at 0841 at 0809
--- NOTE | 2017-03-06 09:05 | ACUTE CARE PROGRESS NOTE (QUA) ---
Progress Notes Subjective Date 03/06/17 Time 0856 Note 82 yo WM in bed in NAD. Denies any chest pains or SOA. Objective Findings Last VS-Temp:97.6 B/P:119/63 Pulse:69 Resp:20 SaO2:95 OXYGEN Last weight lbs:258 oz:7 K.227 Method:Bed Scales Exam General appearance: alert, awake, no acute distress Cardiovascular: irregularly irregular Respiratory: clear to auscultation Reviewed: medications, vital signs, lab results Assessment/Plan Problem List 1. Community acquired pneumonia Qualifiers: Laterality: right Lung location: lower lobe of lung Qualified Code: J18.1 - Lobar pneumonia, unspecified organism 2. Atrial fibrillation, new onset Assessment/Plan: Controlled rate on home dose of beta aicha. On lovenox. History of GI bleed on coumadin and need for transfusion in past. Anemia workup in progress at this time. Echo shows preserved LVEF. Right heart enlarged so would recommend treating for right heart failure with diuretics as tolerated. 3. Anemia Assessment/Plan: To get transfusion today. Workup in progress. With history of CAD, would recommend Hgb >10. Qualifiers: Anemia type: unspecified type Qualified Code: D64.9 - Anemia, unspecified 4. Hypothyroidism 5. Pleural effusion 6. Type 2 diabetes mellitus 7. Debilitated 8. COPD (chronic obstructive pulmonary disease) 9. Elevated d-dimer Assessment/Plan: V/Q scan was low probability for PE. 10. Hypotension 11. CAD (coronary artery disease) Assessment/Plan: Clinically stable with Hgb of 7.5 this AM. Unable to do stress test due to V/Q scan yesterday so will plan to do one next week. 12. Gout 13. CKD (chronic kidney disease) stage 3, GFR 30-59 ml/min Assessment/Plan: Previous nephrectomy. Patient condition Stable Plan: Continue current medical therapy. This inpt stay is expected to cross 2 MNs from start of care Yes at 0905
[2017-03-06 12:04] LABS: ANTIHUMAN GLOB CROSSMATCH COMPAT
--- NOTE | 2017-03-06 12:20 | CONSULT NOTE ---
Standard Demographics Patient Demo Date of Consultation: 03/06/17 Referring Provider: Gavin Ron MD Reason for Consultation: A.fib with CVR, CAD PRIMARY DIAGNOSIS: CAP,ANEMIA,NEW ONSET A FIB Allergies: Coded Allergies: No Known Allergies (03/04/17) History of Present Illness Chief Complaint: Shortness of air History of Present Illness: Patient is an 82-year-old white male with numerous medical comorbidities. He was admitted a couple of days ago after he had presented to the emergency department with shortness of air and dypsnea. He was found to have new onset atrial fibrillation. He was admitted for inpatient management. He also was noted to have appreciably elevated d-dimer. This was in the 1200 range. Of note, patient had prior nephrectomy. He was admitted for inpatient management and underwent CT scan which revealed low probability of pulmonary embolism. He has had anemia noted on blood work which has been somewhat progressive with hemoglobin this morning of 7.5. Surgical consultation was obtained. Patient denies hematochezia. He apparently did have prior blood transfusion. Stool guaiac is negative. Past Medical History Reports: CAD, congestive heart failure, COPD, diabetes mellitus, GERD, renal insufficiency, obesity. Denies: peptic ulcer disease. Surgical History Previous Surgery?Y Tonsils Hernia GOITER LT KIDNEY CATARACTS RT KNEE Allergies Coded Allergies: No Known Allergies (03/04/17) Medications: Reported Medications Allopurinol 200 MG PO ONCE ASPIRIN (Aspirin) 81 MG PO DAILY Docusate Sodium 100 MG PO DAILY Furosemide (Lasix 40MG) 40 MG PO DAILY CLOPIDOGREL BISULFATE (Clopidogrel 75MG) 75 MG PO DAILY Gabapentin (Gabapentin 300MG) 300 MG PO BID Pantoprazole Sodium (Pantoprazole 40MG) 40 MG PO ONCE Glipizide 10 MG PO BID Metoprolol Tartrate (Metoprolol 100MG) 100 MG PO BID TAMSULOSIN HCL (Tamsulosin 0.4MG) 0.4 MG PO QHS Simvastatin (Simvastatin 40MG Tab) 40 MG PO DAILY CHOLECALCIFEROL (VITAMIN D3) (Delta D3) 400 UNIT PO DAILY Smoking Hx Tobacco: No Smoker: Former Smoker Type: N/A Packs/day: N/A Are you/the child exposed to second-hand smoke: No Alcohol Alcohol: No Hx of Drug Use Drug Use? No Review of Systems Constitutional Positive for: malaise, weak. Skin Positive for: swelling. Immune/allergy No: anaphalaxis. Eyes No: vision loss. ENT No: hearing loss. Respiratory Positive for: shortness of air. No: hemoptysis. Cardiovascular Positive for: MCBRIDE, edema. No: chest pain. GI No: abdomen. (male) No: hematuria. Musculoskeletal Positive for: extremity swelling. No: extremity pain. Heme No: bleeding. Endocrine No: cold intolerance. Neurological No: change in LOC. Physical Exam Exam General appearance no acute distress Respiratory decreased breath sounds Cardiovascular irregularly irregular Abdomen soft Plan Plan: Patient has anemia of uncertain etiology. Unclear if there is a gastrointestinal blood loss as an etiology. However, he has no history of melena or hematochezia and stool guaiac is negative. Agree with transfusion at this time. Monitor stability of hemoglobin and hematocrit after transfusion and response. Concerning regarding elevated d-dimer. Check lower extremity venous duplex for DVT although VQ scan showed low probability of pulmonary embolism. May need upper gastrointestinal series initially. at 1217
--- NOTE | 2017-03-06 13:02 | CARDIOVASCULAR REPORT ---
"Venous Exam Indications: 729.5 Pain in limb. 782.3 Edema. IMPRESSIONS 1. There is no evidence of significant Reflux. 2. No evidence of deep or superficial vein thrombosis involving the right lower extremity 3. No evidence of deep or superficial vein thrombosis involving the left lower extremity History: Swelling of both lower extremities. Risk factors: Hypertension. Complete lower extremity venous duplex evaluation. Doppler flow study including spectral analysis, color and zamora scale imaging. Location: Bedside. Patient status: Inpatient. Tables: Venous flow and imaging: + +-------+ + |Location |Overall|Flow properties | + +-------+ + |Right common femoral |Patent |Normal phasicity; spontaneous; | | | |normal augmentation; compressible| + +-------+ + |Right saphenofemoral junction|Patent |Compressible | + +-------+ + |Right profunda femoral |Patent |Compressible | + +-------+ + |Right femoral |Patent |Normal phasicity; spontaneous; | | | |normal augmentation; | | | |compressible; no reflux | + +-------+ + |Right greater saphenous |Patent |Normal phasicity; spontaneous; | | | |normal augmentation; compressible| + +-------+ + |Right popliteal |Patent |Normal phasicity; spontaneous; | | | |normal augmentation; compressible| + +-------+ + |Right posterior tibial |Patent |Compressible | + +-------+ + |Right peroneal |Patent |Compressible | + +-------+ + |Right gastrocnemius |Patent |Compressible | + +-------+ + |Right soleal |Patent |Compressible | + +-------+ + |Left common femoral |Patent |Normal phasicity; spontaneous; | | | |normal augmentation; compressible| + +-------+ + |Left saphenofemoral junction |Patent |Compressible | + +-------+ + |Left profunda femoral |Patent |Compressible | + +-------+ + |Left femoral |Patent |Normal phasicity; spontaneous; | | | |normal augmentation; compressible| + +-------+ + |Left greater saphenous |Patent |Normal phasicity; spontaneous; | | | |normal augmentation; compressible| + +-------+ + |Left popliteal |Patent |Normal phasicity; spontaneous; | | | |normal augmentation; compressible| + +-------+ + |Left posterior tibial |Patent |Compressible | + +-------+ + |Left peroneal |Patent |Compressible | + +-------+ + |Left gastrocnemius |Patent |Compressible | + +-------+ + |Left soleal |Patent |Compressible | + +-------+ + (Report amended ) Electronically signed by: Denver Zaman [id number]"
[2017-03-06 19:19] LABS: HEMOGLOBIN 9.2 g/dL (14.1-18.0)
[2017-03-06 22:12] LABS: STOOL OCCULT BLOOD NEGATIVE (NEG)
[2017-03-07 04:00] VITALS: BP 112/48
[2017-03-07 07:10] LABS: HEMOGLOBIN 9.6 g/dL (14.1-18.0); LYMPH % 12.7 % (10-50)
--- NOTE | 2017-03-07 07:43 | SURGEON PROGRESS NOTE ---
Subjective data Subjective data: DEVIN GARCIA is a 82 M .Patient denies complaint of nausea and vomitting.He reports his last pain level as 0 on a 0-10 pain scale. Patient received two units PRBCs yesterday with excellent response. Lower extremity venous duplex negative for DVT. Stool for hemocult blood negative x 2. Assessment findings Assessment Exam General appearance: normal appearance ABD: distended Patient plan Plan: DVT prophylaxis Additional data: No evidence of GI blood loss source of anemia at this time. May be secondary to chronic disease (renal). Patient may require colonoscopy and endoscopy as outpatient. at 0743
[2017-03-07 08:06] VITALS: BP 112/48
[2017-03-07 08:12] VITALS: BP 105/61
[2017-03-07 08:40] LABS: Folate (Folic Acid) >20.0 ng/mL (>3.0); Vitamin B12 741 pg/mL (211-946)
--- NOTE | 2017-03-07 10:31 | ACUTE CARE PROGRESS NOTE (QUA) ---
Progress Notes Subjective Date 03/07/17 Time 1030 Assessment/Plan Problem List 1. Community acquired pneumonia 2. Atrial fibrillation, new onset 3. Anemia 4. Hypothyroidism 5. Pleural effusion 6. Type 2 diabetes mellitus 7. Debilitated 8. COPD (chronic obstructive pulmonary disease) 9. Elevated d-dimer 10. Hypotension 11. CAD (coronary artery disease) 12. Gout 13. CKD (chronic kidney disease) stage 3, GFR 30-59 ml/min This inpt stay is expected to cross 2 MNs from start of care Yes Antibiotic Stewardship (2) Current Culture Results Microbiology 03/04 1300 BLOOD: Anaerobic Blood Culture - RES 03/04 1300 BLOOD: Aerobic Blood Culture - RES Infxn that will respond? Yes Right drug,dose,and route? Yes More targeted antbx? No (BLOOD CULTURES NEGATIVE) at 1031
[2017-03-07 12:26] VITALS: BP 96/49
--- NOTE | 2017-03-07 15:10 | ACUTE CARE PROGRESS NOTE (QUA) ---
Progress Notes Subjective Date 03/07/17 Time 0900 Note He states he is feeling quite well and would like to be discharged. He will need follow-up with for possible EGD and colonoscopy. Also needs to follow-up with cardiology. It would probably be a good idea to follow-up with Dr. Ron in [facility] next week until his ongoing PCP is determined. Patient/family reports: feeling better Objective Findings Laboratory Tests 03/07/17 1122: POC Glucose 185 H 03/07/17 0630: Sodium 143, Potassium 4.7, Chloride 106, Carbon Dioxide 32, BUN 30 H, Creatinine 1.8 H, Estimated Creat Clear 52, Estimated GFR (MDRD) 36, Glucose 162 H, Calcium 8.6, WBC 7.8, RBC 3.91 L, Hgb 9.6 L, Hct 32.8 L, MCV 83.8, RDW 17.9 H, Plt Count 169, MPV 7.9, Gran % 77.2, Gran # 6.0, Lymphocytes % 12.7 , Monocytes % 5.8, Eosinophils % 3.6, Basophils % 0.6, Lymphocytes # 1.0, Monocytes # 0.5, Eosinophils # 0.3, Basophils # 0.1, PUBS MCHC 29.3 L, MCH 24.5 L 03/07/17 0611: POC Glucose 159 H 03/06/17 2023: POC Glucose 234 H 03/06/17 1932: Stool Occult Blood NEGATIVE 03/06/17 1910: Hgb 9.2 L, Hct 32.0 L 03/06/17 1534: Misc Test Units BLOOD UNIT RELEASE Last VS-Temp:98.9 B/P:96/49 Pulse:87 Resp:18 SaO2:90 OXYGEN Last weight lbs:264 oz:5 K.89 Method:Bed Scales Exam General appearance: alert, no acute distress Eyes: anicteric ENT: mucous membranes moist Cardiovascular: irregularly irregular Respiratory: clear to auscultation, basilar rales (a few) ABD: soft, no tenderness Extremities: no peripheral edema Musculoskeletal: equal muscle strength Skin: dry, intact Neuro: alert Reviewed: medications, vital signs, lab results, radiology report, consult note Assessment/Plan Problem List 1. Community acquired pneumonia 2. Atrial fibrillation, new onset 3. Anemia 4. Hypothyroidism 5. Pleural effusion 6. Type 2 diabetes mellitus 7. Debilitated 8. COPD (chronic obstructive pulmonary disease) 9. Elevated d-dimer 10. Hypotension 11. CAD (coronary artery disease) 12. Gout 13. CKD (chronic kidney disease) stage 3, GFR 30-59 ml/min Patient condition Stable Plan: initiate discharge plan This inpt stay is expected to cross 2 MNs from start of care Yes Comments: Discharge. See med list. Appts with Dr. Ron, Dr. Chanel, Dr. Vivas. at [phone]
[2017-03-07] MEDS ORDERED: LEVOTHYROXINE0.05 MG PO (15:14)
[2017-03-07] MEDS ORDERED: HABITROL21 MG/24 H TD (15:16)
[2017-03-07] MEDS ORDERED: CEFDINIR300 M1 PO (15:18)
[2017-03-07] MEDS ORDERED: FERROUS SULFAT325 M1 PO (15:19)
[2017-03-07] MEDS ORDERED: CARAFATE 1GM TAB1 GM PO (15:21)
[2017-03-07 16:16] VITALS: BP 96/49
--- NOTE | 2017-03-09 08:53 | DISCHARGE SUMMARY STANDARD ---
Discharge Summary ([facility]) Date of admission: 03/04/17 Date of discharge: 03/07/17 Problem List: 1. Community acquired pneumonia 2. Atrial fibrillation, new onset 3. Anemia 4. Hypothyroidism 5. Pleural effusion 6. Type 2 diabetes mellitus 7. Debilitated 8. COPD (chronic obstructive pulmonary disease) 9. Elevated d-dimer 10. Hypotension 11. CAD (coronary artery disease) 12. Gout 13. CKD (chronic kidney disease) stage 3, GFR 30-59 ml/min History of present illness: Mr. Silva is an 82-year-old white male who presented to the emergency department for increasing shortness of breath and dyspnea over the previous several days. Patient denied chest pain, palpitations, chest tightness or pressure. BP at home prior to presentation was 90/30's. He had a periodic cough and denied fever. Workup in the emergency room revealed atrial fibrillation with controlled ventricular response. Initial d-dimer was elevated but due to creatinine patient could not undergo CT scan of the lungs with PE protocol. A VQ scan was ordered. Patient was started on Lovenox therapy. He was noted to be anemic with a recent history of blood transfusion. Etiology apparently unknown per patient and granddaughter. Cardiology consulted for evaluation. Electrocardiogram showed atrial fibrillation with controlled ventricular response with poor R wave progression anteriorly. Exam on admission: 1ST Vital Signs Result Date Time Pulse Ox 92 03/04 1156 B/P 93/40 03/04 1156 Temp 99.6 03/04 1156 Pulse 68 03/04 1156 Resp 20 03/04 1156 O2 Flow Rate 3 03/04 1336 O2 Delivery OXYGEN 03/04 1701 Exam: General appearance: alert, no acute distress, conversant Eyes: anicteric ENT: mucous membranes moist Neck: no carotid bruit, full range of motion, lymphadenopathy (absent), thyroid (normal) Cardiovascular: irregularly irregular Respiratory: diminished breath sounds (posterior) ABD: soft, no tenderness, bowel sounds present, obese Extremities: edema (bilateral lower) Neuro: alert, oriented, speech clear Hospital Course: Patient felt better daily . Telemetry showed At Fib with CVR. Echo revealed preserved LVEF and right heart enlargement. Cardiology was consulted and recommended FU as an OP for stress test. Patient was given 2 units of PRBC with excellent response. He was also seen by Dr. Chanel, surgeon, for the anemia. He suggested to continue to monitor H&H and may need OP endoscopy and colonoscopy. Lower extremity venous duplex was negative for DVT. VQ scan showed low probability for PE. 03/07/17 patient was feeling quite well and requested discharge. H&H remained stable and he was discharged to home. Laboratory data this visit: 03/04/17 1739: POC Glucose 118 H 03/04/17 1533: Antibody Screen NEGATIVE, Miscellaneous Test NEGATIVE 03/04/17 1400: Stool Occult Blood NEGATIVE 03/04/17 1300: TSH 6.24 H, Thyroxine (T4) 7.0 03/04/17 1300: Lactic Acid 1.5 03/04/17 1300: B-Natriuretic Peptide 133 H 03/04/17 1300: Sodium 142, Potassium 4.6, Chloride 107, Carbon Dioxide 33 H, BUN 23 H, Creatinine 1.8 H, Estimated Creat Clear 50, Estimated GFR (MDRD) 36, Glucose 175 H, Calcium 8.5, Total Bilirubin 0.3, AST 10 L, ALT 16, Alkaline Phosphatase 72, Creatine Kinase 42, CK-MB (CK-2) Rel Index 1.2, CK and CKMB Interp 0.5, Troponin I < 0.02, Total Protein 6.7, Albumin 3.1 L, Globulin 3.6 H, Albumin/Globulin Ratio 0.9 L, D-Dimer 1190 *H, WBC 7.8, RBC 3.47 L, Hgb 8.2 L, Hct 28.0 L, MCV 80.7 L, RDW 21.9 H, Plt Count 191, Gran % 83.3 H, Gran # 6.5, Lymphocytes % 12.1, Monocytes % 4.6, Lymphocytes # 0.9, Monocytes # 0.4, PUBS MCHC 29.3 L, MCH 23.6 L 03/06/17 0605: POC Glucose 170 H 03/06/17 0600: Sodium 141, Potassium 5.1, Chloride 106, Carbon Dioxide 34 H, BUN 27 H, Creatinine 2.0 H, Estimated Creat Clear 46 L, Estimated GFR (MDRD) 32, Glucose 165 H, Calcium 8.2 L, WBC 7.1, RBC 3.14 L, Hgb 7.5 *L, Hct 25.5 L, MCV 81.1 L, RDW 22.3 H, Plt Count 165, Gran % 80.5 H, Gran # 5.7, Lymphocytes % 13.8, Monocytes % 5.7, Lymphocytes # 1.0, Monocytes # 0.4, PUBS MCHC 29.4 L, MCH 23.9 L 03/05/172023: POC Glucose 183 H 03/05/171932: WBC 8.5, RBC 3.29 L, Hgb 7.8 *L, Hct 26.9 L, MCV 81.0 L, RDW 21.7 H, Plt Count 175, Gran % 79.1, Gran # 6.7, Lymphocytes % 14.7, Monocytes % 6.2, Lymphocytes # 1.2, Monocytes # 0.5, PUBS MCHC 29.0 L, MCH 23.7 L 03/05/17 1640: POC Glucose 151 H 03/05/17 1148: POC Glucose 204 H 03/07/17 1122: POC Glucose 185 H 03/07/17 0630: Sodium 143, Potassium 4.7, Chloride 106, Carbon Dioxide 32, BUN 30 H, Creatinine 1.8 H, Estimated Creat Clear 52, Estimated GFR (MDRD) 36, Glucose 162 H, Calcium 8.6, WBC 7.8, RBC 3.91 L, Hgb 9.6 L, Hct 32.8 L, MCV 83.8, RDW 17.9 H, Plt Count 169, MPV 7.9, Gran % 77.2, Gran # 6.0, Lymphocytes % 12.7 , Monocytes % 5.8, Eosinophils % 3.6, Basophils % 0.6, Lymphocytes # 1.0, Monocytes # 0.5, Eosinophils # 0.3, Basophils # 0.1, PUBS MCHC 29.3 L, MCH 24.5 L 03/07/17 0611: POC Glucose 159 H 03/06/172022: POC Glucose 234 H 03/06/17 193: Stool Occult Blood NEGATIVE 03/06/170: Hgb 9.2 L, Hct 32.0 L Stool negative for OB Imagin03/03/17 CXR IMPRESSION: 1. Cardiomegaly. 2. Right basilar atelectasis or infiltrate with small right effusion 03/04/17 ECHO CONCLUSION: 1. Biatrial enlargement, normal left ventricular size, visually estimated ejection fraction of 50% with no obvious regional wall motion abnormality, endocardial surfaces are somewhat poorly visualized. 2. Moderately enlarged right ventricle with mild reduced contractility. 3. Mild mitral and tricuspid regurgitation, calculated right ventricular systolic pressure is 42 mmHg consistent with moderate pulmonary hypertension. 4. No significant pericardial effusion noted. 03/05/17 VQ scan IMPRESSION: Low probability for pulmonary embolus 03/05/17 Repeat CXR IMPRESSION: 1. Cardiomegaly. 2. Small right effusion with right basilar atelectasis not significantly changed 03/06/17 Venous exam Venous Exam Indications: 729.5 Pain in limb. 782.3 Edema. IMPRESSIONS 1. There is no evidence of significant Reflux. 2. No evidence of deep or superficial vein thrombosis involving the right lower extremity 3. No evidence of deep or superficial vein thrombosis involving the left lower extremity Discharge medications: Continue taking these medications: Allopurinol (Allopurinol) 100 MG TABLET 200 MILLIGRAM ORAL ONE TIME ASPIRIN (Aspirin) 81 MG TAB.CHEW 81 MILLIGRAM ORAL DAILY Docusate Sodium (Docusate Sodium) 100 MG CAPSULE 100 MILLIGRAM ORAL DAILY Furosemide (Lasix 40MG) 40 MG TABLET 40 MILLIGRAM ORAL DAILY CLOPIDOGREL BISULFATE (Clopidogrel 75MG) 75 MG TABLET 75 MILLIGRAM ORAL DAILY Gabapentin (Gabapentin 300MG) 300 MG CAPSULE 300 MILLIGRAM ORAL TWICE A DAY Pantoprazole Sodium (Pantoprazole 40MG) 40 MG TABLET.DR 40 MILLIGRAM ORAL ONE TIME Glipizide (Glipizide) 10 MG TABLET 10 MILLIGRAM ORAL TWICE A DAY Metoprolol Tartrate (Metoprolol 100MG) 100 MG TABLET 100 MILLIGRAM ORAL TWICE A DAY TAMSULOSIN HCL (Tamsulosin 0.4MG) 0.4 MG CAP.ER.24H 0.4 MILLIGRAM ORAL AT BEDTIME NIGHTLY Simvastatin (Simvastatin 40MG Tab) 40 MG TABLET 40 MILLIGRAM ORAL DAILY CHOLECALCIFEROL (VITAMIN D3) (Delta D3) 400 UNIT TABLET 400 UNIT ORAL DAILY Start taking the following new medications: Levothyroxine Sodium (Levothyroxine) 50 MCG TABLET 0.05 MILLIGRAM ORAL DAILY Qty = 30 Refills = 3 Nicotine (Nicotine Patch) 1 EACH PATCH.TD24 21 MILLIGRAM TRANSDERM DAILY NEEDED as needed for SMOKING CESSATION Qty = 30 Refills = 2 Cefdinir (Cefdinir) 300 MG CAPSULE 300 MILLIGRAM ORAL TWICE A DAY Qty = 14 No Refills Ferrous Sulfate (Ferrous Sulfate 325MG) 325 MG TABLET 325 MILLIGRAM ORAL TWICE A DAY Qty = 100 Refills = 2 Sucralfate (Carafate Tab) 1 GM TABLET 2 GRAM ORAL TWICE A DAY Qty = 120 Refills = 2 Disposition: Patient was discharged to home in stable and satisfactory condition. To continue with meds as per reconciliation sheet. Orders with: Reva Ron MD Follow up: [address] Grady Ron Care Management Consult for: DISCHARGE PLANNING Activity: Limited activity Diet: Continue same diet Discharge to: HOME Agency needed? Y Specify: HOME HEALTH He was also to follow-up with Dr. Chanel for possible colonoscopy and endoscopy and with cardiology at [id number]
== END 2017-03-07 16:10 | disposition home or self-care (01) | DRG 194 ==
LOC: UTC 11:46 → ER 11:55 → 2ND 14:42
PROVIDERS: Emergency Medicine; Family Medicine; Internal Medicine Cardiovascular Disease
DX: J18.1 Lobar pneumonia, unspecified organism (principal); J90 Pleural effusion, not elsewhere classified; I95.9 Hypotension, unspecified; E11.22 Type 2 diabetes mellitus with diabetic chronic kidney disease; J44.9 Chronic obstructive pulmonary disease, unspecified; E11.9 Type 2 diabetes mellitus without complications; N18.3 Chronic kidney disease, stage 3 (moderate); I25.10 Atherosclerotic heart disease of native coronary artery without angina pectoris; E03.9 Hypothyroidism, unspecified
CPT/HCPCS: A9540; A9567; G0328; P9016

== ENCOUNTER 2017-03-15 10:54 | Emergency (ER) | payer OTHER, MEDICARE ==
[~2017-03-15] VITALS: Ht 182.9 cm; Wt 116.6 kg
[~2017-03-15 10:54] MED LIST: ALLOPURINOL100 MG PO; ASPIRIN 81MG TA81 MG PO; CARAFATE 1GM TAB1 GM PO; CEFDINIR300 M1 PO; CLOPIDOGREL75 MG PO; DELTA D3400 IU PO; DOCUSATE SODIU100 MG PO; FERROUS SULFAT325 M1 PO; GABAPENTIN300 MG PO; GLIPIZIDE10 MG PO; HABITROL21 MG/24 H TD; LASIX 40MG. TAB40 MG PO; LEVOTHYROXINE0.05 MG PO; METOPROLOL TAR100 MG PO; PANTOPRAZOLE SO40 MG PO; SIMVASTATIN40 MG PO; TAMSULOSIN HYD0.4 MG PO
--- NOTE | 2017-03-15 11:33 | Urgent Treatment Center Report ---
History of Present Issue Date/Time Seen by Provider 03/15/17 1133 Visit Reason Pt arrived:Wheelchair Presenting Problem:PT C/O BED SORES ON HIS BOTTOM AND REQUESTS EDUCATION ON HOW TO GET RID OF THEM Location if Accident: Onset of symptoms date/time:/ or onset unknown for:MEDICAL HX UNKNOWN Have you (or family members/close friends) recently traveled outside the [place]? N If Yes, where/when: Have you had exposure to infectious disease within the past month? TB? Other? Specify: Patient state that he noticed that he had a sore spot on his left lower buttock area. State that he is not sure if it is open or not because he cannot see it. State that the area is sore and he has been putting some preparation H on it and he thinks it is getting more sore. State that he sits in the recliner alot and doesn't move around that much States that he does not want to get an open bedsore so his family recommended that he come in and get some education on how to prevent them and what to do for them ALLERGIES Coded Allergies: No Known Allergies (03/04/17) Home Medications Active Scripts Levothyroxine Sodium (Levothyroxine) 0.05 MG PO DAILY #30 TAB Ref 3 Prov: 03/07/17 Nicotine (Nicotine Patch) 21 MG TD DAILYP PRN SMOKING CESSATION #30 Ref 2 Prov: 03/07/17 Cefdinir 300 MG PO BID #14 CAP Prov: 03/07/17 Ferrous Sulfate (Ferrous Sulfate 325MG) 325 MG PO BID #100 TAB Ref 2 Prov: 03/07/17 Sucralfate (Carafate Tab) 2 GM PO BID #120 TAB Ref 2 Prov: 03/07/17 Reported Medications Allopurinol 200 MG PO ONCE ASPIRIN (Aspirin) 81 MG PO DAILY Docusate Sodium 100 MG PO DAILY Furosemide (Lasix 40MG) 40 MG PO DAILY CLOPIDOGREL BISULFATE (Clopidogrel 75MG) 75 MG PO DAILY Gabapentin (Gabapentin 300MG) 300 MG PO BID Pantoprazole Sodium (Pantoprazole 40MG) 40 MG PO ONCE Glipizide 10 MG PO BID Metoprolol Tartrate (Metoprolol 100MG) 100 MG PO BID TAMSULOSIN HCL (Tamsulosin 0.4MG) 0.4 MG PO QHS Simvastatin (Simvastatin 40MG Tab) 40 MG PO DAILY CHOLECALCIFEROL (VITAMIN D3) (Delta D3) 400 UNIT PO DAILY History Medical History General CAD? Yes Angina: No NE: No Hypertension? No Hyperlipidemia? No CHF? Yes DVT? No PE? No COPD? Yes Asthma? No Anemia? Yes GERD? Yes Gastric ulcers? No GI Bleed? Yes Hernia? No Thyroid Problems? Yes Hypothyroidism? Yes CVA? No Seizures? No Diabetes? Yes Insulin Dependent: No Insulin Pump: No Home FSBS? No Renal Insuffiency? Yes UTI? Yes Stones? Yes BPH? Yes GB Disease: No Hepatitis? No Arthritis? Yes Migraines? No Cataracts? Yes Glaucoma? No MRSA? No HIV? No TB? No Anxiety? No Depression? No Cancer? No More? Yes Additional hx: Gout 05/1984 Acute diverticulitis -colonoscopy 1986 SVT Renal stones Ankle Fracture Atrophy of Left kidney Ct 1998 Immunization HX DT/Tetanus Unknown Pneumonia Never Had Surgical Hx Previous Surgery?Y Tonsils Hernia GOITER LT KIDNEY CATARACTS RT KNEE Family History Family HX Diabetes Yes CAD No Hypertension Yes Hyperlipidemia No Cancer No TB No Social History Smoking Hx Smoker: Never Smoker Tobacco: No Packs/day N/A Alcohol Alcohol: No Review of Systems All Other Systems Reviewed and Negative Skin lesions Physical Exam Vital Signs Vital Signs Date Time Temp Pulse Resp B/P Pulse O2 O2 Flow FiO2 Ox Delivery Rate 03/15 1155 97.9 109 18 113/74 93 03/15 1154 97.9 109 18 113/74 93 03/15 1117 97.9 109 18 113/74 93 General Appearance normal appearance, WD/WN, no apparent distress Respiratory Status Yes: trachea midline, chest symmetrical. No: respiratory distress. Cardiovascular normal exam Neurologic alert, normal exam, oriented x 3 Skin Patient skin observed, noticed small 2x2 round area on left upper leg/lower buttock area where patient state that he has a sore spot and been putting preparation H on it. No open wounds observed Medical Decision Making LABS/Meds/Orders Pt receiving controlled substance in ED? No Departure Departure Time of Disposition 1141 Disposition DC Home or Self Care(routine) Clinical Impression Primary Impression: Skin problem Condition STABLE Referrals Home Health Patient Instructions DI for Pressure Sores, How to Prevent Pressure Ulcers, Pressure Injuries Additional Instructions Take pressure off the area. Change positions often. ... Keep the sore clean and covered with a bandage. The doctor will tell you what type of bandage to use. ... Keep the healthy tissue around a pressure sore clean and dry. Eat a healthy diet with enough protein to help the skin heal Calmoseptine, A&D ointment is some good creams to use on skin to provide a barrier between moister and friction on the skin Use pillow to off load your weight and prevent pressure sore on joints/bones Use pillow under one hip for two hours then move to other hip to keep weight distributed and keep one area from baring all the weight all the time Follow up with you family doctor for further treatment and if at anytime you notice open sore go straight to your family doctor. Also see family doctor for home health referral if needed DO NOT USE PREPARATION H on pressure spots Discharge Counseling Counseled pt/family regarding diagnosis, medications/RX, home care Prescriptions Current Visit Scripts Menthol/Zinc Oxide (Calmoseptine Ointment) 1 OIN TP PRN PRN barrier #1 OIN Ref 2 at 202
[2017-03-15] MEDS ORDERED: CALMOSEPTINE1 OIN TP (11:51)
[2017-03-15 11:55] VITALS: BP 113/74
--- OUTSIDE RECORDS SUMMARY | 2017-03-20 18:29 | External Medical Summary Rpt | CCD ---
Author Author [employer] Organization [employer] Address Unknown Phone Unavailable Purpose Continuity of Care Document - through 2016
--- OUTSIDE RECORDS SUMMARY | 2017-03-20 18:29 | External Medical Summary Rpt | CCD ---
Demographics Preferred Language Portuguese Marital Status Unknown Jehovah'S Witness Affiliation Unknown Race Unknown Ethnic Group Unknown Author Author , NARINDER BARCENAS Address Unknown Phone Immunization No patient found.
--- OUTSIDE RECORDS SUMMARY | 2017-03-20 18:29 | External Medical Summary Rpt | CCD ---
Author Author , NARINDER Organization NARINDER Address Unknown Phone [email or web address] Purpose Continuity of Care Document - 03-04-2017 through 2016 Results Labs Lab Lab Date Result Refere Interp Status Commen Order Detail nces retati t Range on Hemoglobin.gastrointestinal [Presence] in Stool (03-06-2017 19:32) Hemoglo NEGATIV NEG complet bin.gas 017 E ed trointe 19:32 stinal [Presen ce] in Stool --1st specime n Blood product special preparation [Type] (03-06-2017 15:34) Blood BLOOD complet product 017 UNIT ed 15:34 RELEASE special prepara tion [Type] Blood product special preparation [Type] (03-06-2017 13:09) Blood BLOOD complet product 017 UNIT ed 13:09 RELEASE special prepara tion [Type] Blood type & Crossmatch panel in Blood (03-04-2017 15:33) Major COMPAT complet crossma 017 ed tch 15:33 [interp retatio n] Major COMPAT complet crossma 017 ed tch 15:33 [interp retatio n] by Immedia te spin Blood type & Indirect antibody screen panel in Blood (03-04-2017 15:33) Blood NEGATIV NEGATIV complet group 017 E E ed antibod 15:33 y screen [Presen ce] in Serum or Plasma Rh NEGATIV complet [Type] 017 E ed in 15:33 Blood ABO B complet group 017 ed [Type] 15:33 in Blood Hemoglobin.gastrointestinal [Presence] in Stool (03-04-2017 14:00) Hemoglo NEGATIV NEG complet bin.gas 017 E ed trointe 14:00 stinal [Presen ce] in Stool --1st specime n
--- OUTSIDE RECORDS SUMMARY | 2017-03-20 18:29 | External Medical Summary Rpt | CCD ---
Author Author , NARINDER Organization [employer] Address Unknown Phone [email or web address] Purpose Continuity of Care Document - 03-04-2017 [...]
--- OUTSIDE RECORDS SUMMARY | 2017-03-20 18:29 | External Medical Summary Rpt | CCD ---
Demographics Preferred Language Telugu Marital Status Unknown [employer] Affiliation Unknown Race Unknown Ethnic Group Unknown Author Author , NARINDER BARCENAS Address Unknown Phone Immunization No patient found.
--- OUTSIDE RECORDS SUMMARY | 2017-03-20 18:30 | External Medical Summary Rpt ---
Author Author [employer], [employer] Organization [employer] Address Unknown Phone Unavailable Results Glucose [Mass/volume] in Capillary blood by Glucometer Observa Value Referen Units Interpr Notes Date tion ce etation Range Glucose 70 - 110 mg/dl High No Sep 30 [Mass/vol informati 2017 ume] in on in 11:22 AM Capillary source blood by data Glucomete r Basic metabolic panel in Blood Observa Value Referen Units Interpr Notes Date tion ce etation Range Urea 7 - 18 mg/dL High No Sep 30 nitrogen informati 2017 6:30 [Mass/vol on in AM ume] in source Serum or data Plasma Calcium 8.5 - mg/dL Normal No Sep 30 [Mass/vol 10.1 informati 2017 6:30 ume] in on in AM Serum or source Plasma data Chloride 98 - 107 mmoL/L Normal No Sep 30 [Moles/vo informati 2017 6:30 lume] in on in AM Serum or source Plasma data Carbon 21.0 - mmoL/L Normal No Sep 30 dioxide, 32.0 informati 2017 6:30 total on in AM [Moles/vo source lume] in data Serum or Plasma Creatinin 0.70 - mg/dL High No Sep 30 e 1.30 informati 2017 6:30 [Mass/vol on in AM ume] in source Serum or data Plasma Creatinin 50 - 200 ML/MIN Normal No Sep 30 e renal informati 2017 6:30 clearance on in AM source predicted data by Cockcroft -Gault formula Estimated >60 ML/MIN No REFERENCE Sep 30 informati RANGE: 2017 6:30 glomerula on in >60 AM r source ML/MIN/1. filtratio data 73 SQUARE n rate METERSIf (GF this patient is -A merican, then multiply theresult by 1.210. Glucose 74 - 106 mg/dL High No Sep 30 [Mass/vol informati 2017 6:30 ume] in on in AM Serum or source Plasma data Potassium 3.5 - 5.1 mmoL/L Normal No Sep 30 informati 2017 6:30 [Moles/vo on in AM lume] in source Serum or data Plasma Sodium 136 - 145 mmoL/L Normal No Sep 30 [Moles/vo informati 2017 6:30 lume] in on in AM Serum or source Plasma data CBC W Auto Differential panel in Blood Observa Value Referen Units Interpr Notes Date tion ce etation Range Basophils 0 - 0.2 K/MM3 Normal No Sep 30 informati 2017 6:30 [#/volume on in AM ] in source Blood by data Automated count Basophils 0.1 - 2.0 % Normal No Sep 30 /100 informati 2017 6:30 leukocyte on in AM s in source Blood by data Automated count Eosinophi 0.0 - 0.4 K/mm3 Normal No Sep 30 ls informati 2017 6:30 [#/volume on in AM ] in source Blood by data Automated count Eosinophi 0.1 - % Normal No Sep 30 ls/100 12.0 informati 2017 6:30 leukocyte on in AM s in source Blood by data Automated count Granulocy 1.3 - 8.0 K/mm3 Normal No Sep 30 jennie informati 2017 6:30 [#/volume on in AM ] in source Blood by data Automated count Granulocy 37.0 - % Normal No Sep 30 jennie/100 80.0 informati 2017 6:30 leukocyte on in AM s in source Blood by data Automated count Hematocri 42.0 - % Low No Sep 30 t [Volume 52.0 informati 2017 6:30 on in AM Fraction] source of Blood data Hemoglobi 14.1 - g/dL Low No Sep 30 n 18.0 informati 2017 6:30 [Mass/vol on in AM ume] in source Blood data Lymphocyt 0.7 - 4.5 K/mm3 Normal No Sep 30 es informati 2017 6:30 [#/volume on in AM ] in source Unspecifi data ed specimen by Automated count Lymphocyt 10 - 50 % Normal No Sep 30 es informati 2017 6:30 [#/volume on in AM ] in source Unspecifi data ed specimen by Automated count Erythrocy 27 - 31.2 pg Low No Sep 30 te mean informati 2017 6:30 corpuscul on in AM ar source hemoglobi data n [Entitic mass] Erythrocy 31.8 - g/dl Low No Sep 30 te mean 35.4 informati 2017 6:30 corpuscul on in AM ar source hemoglobi data n concentra tion [Mass/vol ume] by Automated count Erythrocy 82.2 - fl Normal No Sep 30 te mean 97.8 informati 2017 6:30 corpuscul on in AM ar volume source [Entitic data volume] by Automated count Monocytes 0.1 - 1.0 K/mm3 Normal No Sep 30 informati 2017 6:30 [#/volume on in AM ] in source Blood by data Automated count Monocytes 1.7 - 9.3 % Normal No Sep 30 /100 informati 2017 6:30 leukocyte on in AM s in source Blood by data Automated count Platelet 7.4 - fl Normal No Sep 30 mean 10.4 informati 2017 6:30 volume on in AM [Entitic source volume] data in Blood by Automated count Platelets 142 - 424 K/mm3 Normal No Sep 30 informati 2017 6:30 [#/volume on in AM ] in source Blood data Erythrocy 4.6 - 6.2 M/mm3 Low No Sep 30 jennie informati 2017 6:30 [#/volume on in AM ] in source Amniotic data fluid Erythrocy 11.5 - % High No Sep 30 te 17.5 informati 2017 6:30 distribut on in AM ion width source [Entitic data volume] by Automated count Leukocyte 4.8 - K/MM3 Normal No Sep 30 s 10.8 informati 2017 6:30 [#/volume on in AM ] in source Blood data Glucose [Mass/volume] in Capillary blood by Glucometer Observa Value Referen Units Interpr Notes Date tion ce etation Range Glucose 70 - 110 mg/dl High No Sep 30 [Mass/vol informati 2017 6:11 ume] in on in AM Capillary source blood by data Glucomete r Glucose [Mass/volume] in Capillary blood by Glucometer Observa Value Referen Units Interpr Notes Date tion ce etation Range Glucose 70 - 110 mg/dl High No Sep 29 [Mass/vol informati 2017 8:23 ume] in on in PM Capillary source blood by data Glucomete r Hemoglobin.gastrointestinal [Presence] in Stool Observa Value Referen Units Interpr Notes Date tion ce etation Range Collected by nurse? Y Hold specimen in OE? N Hemoglo NEGATIV NEG No No No Sep 29 bin.gas E informa informa informa 2017 trointe tion in ti in on in 7:32 PM stinal source source source [Presen data data data ce] in Stool --1st specime n Hemoglobin & Hematocrit panel in Blood Observa Value Referen Units Interpr Notes Date ti ce etation Range Hematocri 42.0 - % Low No Sep 29 t [Volume 52.0 informati 2016 7:10 on in PM Fraction] source of Blood data Hemoglobi 14.1 - g/dL Low No Sep 29 n 18.0 informati 2017 7:10 [Mass/vol on in PM ume] in source Blood data Glucose [Mass/volume] in Capillary blood by Glucometer Observa Value Referen Units Interpr Notes Date ti ce etation Range Glucose 70 - 110 mg/dl High No Sep 29 [Mass/vol informati 2017 4:31 ume] in on in PM Capillary source blood by data Glucomete r Blood product special preparation [Type] Observa Value Referen Units Interpr Notes Date ti ce etation Range Blood BLOOD No No No BLOOD Sep 29 product UNIT informa informa informa UNIT # 2017 RELEASE tion in in in : [id number] 3:34 PM special source source source 17 data data data [id number] prepara RELEASE tion D [Type] [employer] NEG Blood product special preparation [Type] Observa Value Referen Units Interpr Notes Date ti ce etation Range Blood BLOOD No No No B Sep 29 product UNIT informa informa informa NEGBLOO 2017 RELEASE ti in in ti in D UNIT 1:09 PM special source source source # : data data data [id number] prepara 17 tion [id number] [Type] RELEASE D Alessandra Snyder Glucose [Mass/volume] in Capillary blood by Glucometer Observa Value Referen Units Interpr Notes Date tion ce etation Range Glucose 70 - 110 mg/dl High No Sep 29 [Mass/vol informati 2016 ume] in on in 11:23 AM Capillary source blood by data Glucomete r INR in Blood by Coagulation assay Observa Value Referen Units Interpr Notes Date tion ce etation Range IS PATIENT ON ANTICOAGULANTS? N INR in 0.9 - 1.1 No Normal INDICATIO Sep 29 Blood by informati N 2016 9:15 Coagulati on in AM on assay source INR data RANGETHER APY FOR DVT, PE, ATRIAL FIB; 2.0 - 3.0PROPHY LAXIS FOR VTETHERAP Y FOR MECHANICA L HEART 2.5 - 3.5VALVE; PREVENTIO N OF SYSTEMICE MBOLISM SECONDARY TO AMI Prothromb 9.4 - SECONDS Normal No Sep 29 in time 11.8 informati 2016 9:15 (PT) in on in AM Platelet source poor data plasma by Coagulati on assay Iron [Mass/mass] in Unspecified specimen Observa Value Referen Units Interpr Notes Date tion ce etation Range Iron 65 - 175 ug/dL Low No Sep 29 [Mass/mas informati 2016 6:15 s] in on in AM Unspecifi source ed data specimen Reticulocytes [#/volume] in Blood by Automated count Observa Value Referen Units Interpr Notes Date tion ce etation Range Reticuloc 0.9 - 3.2 % Normal No Sep 29 ytes informati 2016 6:15 [#/volume on in AM ] in source Blood by data Automated count Glucose [Mass/volume] in Capillary blood by Glucometer Observa Value Referen Units Interpr Notes Date tion ce etation Range Glucose 70 - 110 mg/dl High No Sep 29 [Mass/vol informati 2017 6:05 ume] in on in AM Capillary source blood by data Glucomete r CBC W Auto Differential panel in Blood Observa Value Referen Units Interpr Notes Date tion ce etation Range Granulocy 1.3 - 8.0 K/mm3 Normal No Sep 29 jennie informati 2016 6:00 [#/volume on in AM ] in source Blood by data Automated count Granulocy 37.0 - % High No Sep 29 jennie/100 80.0 informati 2016 6:00 leukocyte on in AM s in source Blood by data Automated count Hematocri 42.0 - % Low No Sep 29 t [Volume 52.0 informati 2016 6:00 on in AM Fraction] source of Blood data Hemoglobi 14.1 - g/dL Low alert Sep 29 n 18.0 2016 6:00 [Mass/vol CRITICAL AM ume] in RESULTS Blood RESU LTS CALLED TO: STANTON 03/06/17 0636 Alcon,Rich luisa Lymphocyt 0.7 - 4.5 K/mm3 Normal No Sep 29 es informati 2016 6:00 [#/volume on in AM ] in source Unspecifi data ed specimen by Automated count Lymphocyt 10 - 50 % Normal No Sep 29 es informati 2016 6:00 [#/volume on in AM ] in source Unspecifi data ed specimen by Automated count Erythrocy 27 - 31.2 pg Low No Sep 29 te mean informati 2017 6:00 corpuscul on in AM ar source hemoglobi data n [Entitic mass] Erythrocy 31.8 - g/dl Low No Sep 29 te mean 35.4 informati 2017 6:00 corpuscul on in AM ar source hemoglobi data n concentra tion [Mass/vol ume] by Automated count Erythrocy 82.2 - fL Low No Sep 29 te mean 97.8 informati 2017 6:00 corpuscul on in AM ar volume source [Entitic data volume] by Automated count Monocytes 0.1 - 1.0 K/mm3 Normal No Sep 29 informati 2017 6:00 [#/volume on in AM ] in source Blood by data Automated count Monocytes 1.7 - 9.3 % Normal No Sep 29 /100 informati 2017 6:00 leukocyte on in AM s in source Blood by data Automated count Platelets 142 - 424 K/mm3 Normal No Sep 29 informati 2017 6:00 [#/volume on in AM ] in source Blood data Erythrocy 4.6 - 6.2 M/mm3 Low No Sep 29 jennie informati 2017 6:00 [#/volume on in AM ] in source Amniotic data fluid Erythrocy 11.5 - % High No Sep 29 te 17.5 informati 2017 6:00 distribut on in AM ion width source [Entitic data volume] by Automated count Leukocyte 4.8 - K/mm3 Normal No Sep 29 s 10.8 informati 2016 6:00 [#/volume on in AM ] in source Blood data Basic metabolic panel in Blood Observa Value Referen Units Interpr Notes Date tion ce etation Range Urea 7 - 18 mg/dL High No Sep 29 nitrogen informati 2017 6:00 [Mass/vol on in AM ume] in source Serum or data Plasma Calcium 8.5 - mg/dL Low No Sep 29 [Mass/vol 10.1 informati 2017 6:00 ume] in on in AM Serum or source Plasma data Chloride 98 - 107 mmoL/L Normal No Sep 29 [Moles/vo informati 2017 6:00 lume] in on in AM Serum or source Plasma data Carbon 21.0 - mmoL/L High No Sep 29 dioxide, 32.0 informati 2017 6:00 total on in AM [Moles/vo source lume] in data Serum or Plasma Creatinin 0.70 - mg/dL High No Sep 29 e 1.30 informati 2017 6:00 [Mass/vol on in AM ume] in source Serum or data Plasma Creatinin 50 - 200 ML/MIN Low No Sep 29 e renal informati 2017 6:00 clearance on in AM source predicted data by Cockcroft -Gault formula Estimated >60 ML/MIN No REFERENCE Sep 29 informati RANGE: 2017 6:00 glomerula on in >60 AM r source ML/MIN/1. filtratio data 73 SQUARE n rate METERSIf (GF this patient is -A merican, then multiply theresult by 1.210. Glucose 74 - 106 mg/dL High No Sep 29 [Mass/vol informati 2017 6:00 ume] in on in AM Serum or source Plasma data Potassium 3.5 - 5.1 mmoL/L Normal No Sep 29 informati 2017 6:00 [Moles/vo on in AM lume] in source Serum or data Plasma Sodium 136 - 145 mmoL/L Normal No Sep 29 [Moles/vo informati 2017 6:00 lume] in on in AM Serum or source Plasma data Glucose [Mass/volume] in Capillary blood by Glucometer Observa Value Referen Units Interpr Notes Date tion ce etation Range Glucose 70 - 110 mg/dl High No Sep 28 [Mass/vol informati 2017 8:24 ume] in on in PM Capillary source blood by data Glucomete r CBC W Auto Differential panel in Blood Observa Value Referen Units Interpr Notes Date tion ce etation Range Granulocy 1.3 - 8.0 K/mm3 Normal No Sep 28 jennie informati 2017 7:33 [#/volume on in PM ] in source Blood by data Automated count Granulocy 37.0 - % Normal No Sep 28 jennie/100 80.0 informati 2017 7:33 leukocyte on in PM s in source Blood by data Automated count Hematocri 42.0 - % Low No Sep 28 t [Volume 52.0 informati 2016 7:33 on in PM Fraction] source of Blood data Hemoglobi 14.1 - g/dL Low alert Sep 28 n 18.0 2016 7:33 [Mass/vol CRITICAL PM ume] in RESULTS Blood RESU LTS CALLED TO: NOE 03/05/171954 O'David,Ka itlyn Lymphocyt 0.7 - 4.5 K/mm3 Normal No Sep 28 es informati 2016 7:33 [#/volume on in PM ] in source Unspecifi data ed specimen by Automated count Lymphocyt 10 - 50 % Normal No Sep 28 es informati 2016 7:33 [#/volume on in PM ] in source Unspecifi data ed specimen by Automated count Erythrocy 27 - 31.2 pg Low No Sep 28 te mean informati 2016 7:33 corpuscul on in PM ar source hemoglobi data n [Entitic mass] Erythrocy 31.8 - g/dl Low No Sep 28 te mean 35.4 informati 2016 7:33 corpuscul on in PM ar source hemoglobi data n concentra tion [Mass/vol ume] by Automated count Erythrocy 82.2 - fL Low No Sep 28 te mean 97.8 informati 2016 7:33 corpuscul on in PM ar volume source [Entitic data volume] by Automated count Monocytes 0.1 - 1.0 K/mm3 Normal No Sep 28 informati 2016 7:33 [#/volume on in PM ] in source Blood by data Automated count Monocytes 1.7 - 9.3 % Normal No Sep 28 /100 informati 2016 7:33 leukocyte on in PM s in source Blood by data Automated count Platelets 142 - 424 K/mm3 Normal No Sep 28 informati 2017 7:33 [#/volume on in PM ] in source Blood data Erythrocy 4.6 - 6.2 M/mm3 Low No Sep 28 jennie informati 2017 7:33 [#/volume on in PM ] in source Amniotic data fluid Erythrocy 11.5 - % High No Sep 28 te 17.5 informati 2017 7:33 distribut on in PM ion width source [Entitic data volume] by Automated count Leukocyte 4.8 - K/mm3 Normal No Sep 28 s 10.8 informati 2017 7:33 [#/volume on in PM ] in source Blood data Glucose [Mass/volume] in Capillary blood by Glucometer Observa Value Referen Units Interpr Notes Date tion ce etation Range Glucose 70 - 110 mg/dl High No Sep 28 [Mass/vol informati 2017 4:40 ume] in on in PM Capillary source blood by data Glucomete r Glucose [Mass/volume] in Capillary blood by Glucometer Observa Value Referen Units Interpr Notes Date tion ce etation Range Glucose 70 - 110 mg/dl High No Sep [Mass/vol informati 2017 ume] in on in 11:48 AM Capillary source blood by data Glucomete r Glucose [Mass/volume] in Capillary blood by Glucometer Observa Value Referen Units Interpr Notes Date tion ce etation Range Glucose 70 - 110 mg/dl High No Mar 05 [Mass/vol informati 2017 6:03 ume] in on in AM Capillary source blood by data Glucomete r Glucose [Mass/volume] in Capillary blood by Glucometer Observa Value Referen Units Interpr Notes Date tion ce etation Range Glucose 70 - 110 mg/dl High No Mar 04 [Mass/vol informati 2017 7:57 ume] in on in PM Capillary source blood by data Glucomete r Glucose [Mass/volume] in Capillary blood by Glucometer Observa Value Referen Units Interpr Notes Date tion ce etation Range Glucose 70 - 110 mg/dl High No Mar 04 [Mass/vol informati 2017 5:39 ume] in on in PM Capillary source blood by data Glucomete r Blood type & Crossmatch panel in Blood Observa Value Referen Units Interpr Notes Date tion ce etation Range Hold? N Transfuse now? 2 UNITS NOW Major COMPAT No No No No Mar 04 crossma informa informa informa informa 2017 tch tion in tion in tion in tion in 3:33 PM [interp source source source source retatio data data data data n] Major COMPAT No No No No Mar 04 crossma informa informa informa informa 2017 tch tion in tion in tion in tion in 3:33 PM [interp source source source source retatio data data data data n] by Immedia te spin Blood type & Crossmatch panel in Blood Observa Value Referen Units Interpr Notes Date ti ce etation Range Hold? N Transfuse now? 2 UNITS NOW Major COMPAT No No No No Sep crossma informa informa informa informa 2017 tch tion in tion in tion in tion in 3:33 PM [interp source source source source retatio data data data data n] Major COMPAT No No No No Sep crossma informa informa informa informa 2017 tch tion in tion in tion in tion in 3:33 PM [interp source source source source retatio data data data data n] by Immedia te spin Blood type & Indirect antibody screen panel in Blood Observa Value Referen Units Interpr Notes Date ti ce etation Range Blood NEGATIV NEGATIV No No No Sep group E E informa informa informa 2017 antibod tion in ti in ti in 3:33 PM y source source source screen data data data [Presen ce] in Serum or Plasma Rh NEGATIV No No No No Sep [Type] E informa informa informa informa 2016 in tion in tion in tion in ti in 3:33 PM Blood source source source source data data data data ABO B No No No No Sep group informa informa informa informa 2017 [Type] tion in tion in ti in ti in 3:33 PM in source source source source Blood data data data data Hemoglobin.gastrointestinal [Presence] in Stool Observa Value Referen Units Interpr Notes Date ti ce etation Range Hemoglo NEGATIV NEG No No No Sep bin.gas E informa informa informa 2017 trointe tion in tion in ti in 2:00 PM stinal source source source [Presen data data data ce] in Stool --1st specime n Fibrin D-dimer FEU [Mass/volume] in Platelet poor plasma Observa Value Referen Units Interpr Notes Date tion ce etation Range Fibrin 0 - 400 ng/mL High Sep 27 D-dimer alert NOTIFICAT 2017 1:00 FEU ION PM [Mass/vol RESULT ume] in The Platelet D-Dimer poor values plasma are presented in units of mass(ng/m L) ofD-Dimer units(DDU ).This test has been FDA approved as an aid in the assessmen tand evaluatio n of suspected DIC, and thromboem bolic eventsinc luding PE and DVT. However, it does not have approvalf or cut-off values for the exclusion of these condition s. Thyroxine (T4) [Mass/volume] in Serum or Plasma Observa Value Referen Units Interpr Notes Date tion ce etation Range Thyroxine 4.7 - ug/dl Normal No Sep 27 (T4) 13.3 informati 2016 1:00 [Mass/vol on in PM ume] in source Serum or data Plasma Thyrotropin [Units/volume] in Serum or Plasma Observa Value Referen Units Interpr Notes Date tion ce etation Range Thyrotrop 0.358 - uIU/ml High No Sep 27 in 3.740 informati 2016 1:00 [Units/vo on in PM lume] in source Serum or data Plasma Lactate [Moles/volume] in Blood Observa Value Referen Units Interpr Notes Date tion ce etation Range Lactate 0.4 - 2.0 mmol/L Normal No Sep 27 [Moles/vo informati 2016 1:00 lume] in on in PM Blood source data Natriutietic peptide B [Mass/volume] in Serum or Plasma Observa Value Referen Units Interpr Notes Date tion ce etation Range Natriutie 0 - 100 pg/mL High No Sep 27 tic informati 2016 1:00 peptide B on in PM source [Mass/vol data ume] in Serum or Plasma CBC W Auto Differential panel in Blood Observa Value Referen Units Interpr Notes Date tion ce etation Range Granulocy 1.3 - 8.0 K/mm3 Normal No Sep 27 jennie informati 2016 1:00 [#/volume on in PM ] in source Blood by data Automated count Granulocy 37.0 - % High No Sep 27 jennie/100 80.0 informati 2016 1:00 leukocyte on in PM s in source Blood by data Automated count Hematocri 42.0 - % Low No Sep 27 t [Volume 52.0 informati 2016 1:00 on in PM Fraction] source of Blood data Hemoglobi 14.1 - g/dL Low No Sep 27 n 18.0 informati 2017 1:00 [Mass/vol on in PM ume] in source Blood data Lymphocyt 0.7 - 4.5 K/mm3 Normal No Sep 27 es informati 2016 1:00 [#/volume on in PM ] in source Unspecifi data ed specimen by Automated count Lymphocyt 10 - 50 % Normal No Sep 27 es informati 2016 1:00 [#/volume on in PM ] in source Unspecifi data ed specimen by Automated count Erythrocy 27 - 31.2 pg Low No Sep 27 te mean informati 2017 1:00 corpuscul on in PM ar source hemoglobi data n [Entitic mass] Erythrocy 31.8 - g/dl Low No Sep 27 te mean 35.4 informati 2016 1:00 corpuscul on in PM ar source hemoglobi data n concentra tion [Mass/vol ume] by Automated count Erythrocy 82.2 - fL Low No Sep 27 te mean 97.8 informati 2016 1:00 corpuscul on in PM ar volume source [Entitic data volume] by Automated count Monocytes 0.1 - 1.0 K/mm3 Normal No Sep 27 informati 2017 1:00 [#/volume on in PM ] in source Blood by data Automated count Monocytes 1.7 - 9.3 % Normal No Sep 27 /100 informati 2017 1:00 leukocyte on in PM s in source Blood by data Automated count Platelets 142 - 424 K/mm3 Normal No Sep 27 informati 2017 1:00 [#/volume on in PM ] in source Blood data Erythrocy 4.6 - 6.2 M/mm3 Low No Sep 27 jennie informati 2016 1:00 [#/volume on in PM ] in source Amniotic data fluid Erythrocy 11.5 - % High No Sep 27 te 17.5 informati 2016 1:00 distribut on in PM ion width source [Entitic data volume] by Automated count Leukocyte 4.8 - K/mm3 Normal No Sep 27 s 10.8 informati 2016 1:00 [#/volume on in PM ] in source Blood data
--- OUTSIDE RECORDS SUMMARY | 2017-03-20 18:30 | External Medical Summary Rpt ---
[...] source source source 17 data data data [id number] prepara RELEASE tion D [Type] [employer] NEG Blood product special preparation [Type] Observa Value Referen Units Interpr Notes Date ti ce etation Range Blood BLOOD No No No B Sep 29 product UNIT informa informa informa NEGBLOO 2017 RELEASE ti in in ti in D UNIT 1:09 PM special source source source # : data data data [id number] prepara 17 tion [id number] [Type] RELEASE D Alessandra Snyder Glucose [Mass/volume] [...]
== END 2017-03-15 12:00 | disposition home or self-care (01) ==
LOC: ER 10:54 → UTC 10:54
DX: L89.329 Pressure ulcer of left buttock, unspecified stage (principal); I25.10 Atherosclerotic heart disease of native coronary artery without angina pectoris; J44.9 Chronic obstructive pulmonary disease, unspecified; D64.9 Anemia, unspecified; K21.9 Gastro-esophageal reflux disease without esophagitis; E03.9 Hypothyroidism, unspecified; E11.9 Type 2 diabetes mellitus without complications; Z79.84 Long term (current) use of oral hypoglycemic drugs